=== PATIENT | male | born 1970 ===

== ENCOUNTER 2018-08-30 21:05 | Inpatient (IN) | payer OTHER ==
[2018-08-30 21:34] VITALS: BMI 39.6
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
[2018-08-31 00:42] LABS: ALB/GLOB RATIO 1.7 (1.1-1.8); ALBUMIN 4.6 g/dL (3.0-4.8); BLOOD UREA NITROGEN 15 mg/dL (7-21); CALCIUM 8.6 mg/dL (8.4-10.5); GFR NON-AFRICAN AMERICAN > 60
[2018-08-31 01:19] LABS: ALT/SGPT 50 U/L (7-56); AST/SGOT 90 U/L (17-59)
[2018-08-31 02:01] LABS: HEMOGLOBIN 13.4 g/dL (14.0-18.0); MEAN CELL VOLUME 75.6 fl (80.0-105.0); MEAN CORPUSCULAR HEMOGLOBIN 24.2 pg (25.0-35.0); MEAN CORPUSCULAR HGB CONC 32.1 g/dl (31.0-37.0); MEAN PLATELET VOLUME 8.3 fl (7.0-11.0); RBC 5.53 10^6/uL (3.5-6.1); RED CELL DISTRIBUTION WIDTH 17.6 % (11.5-14.5); WHITE BLOOD COUNT 8.3 10^3/uL (4.5-11.0)
[2018-08-31 07:10] LABS: BARBITURATES, UR NEGATIVE (NEGATIVE); BENZODIAZEPINES, UR NEGATIVE (NEGATIVE); OPIATES, UR NEGATIVE (NEGATIVE); PHENCYCLIDINE, UR NEGATIVE (NEGATIVE)
--- NOTE | 2018-08-31 07:17 | ED PDOC ---
Physical Exam Vital Signs Temp Pulse Resp BP Pulse Ox 08/31/18 06:03 97.9 F 106 H 18 139/89 98 08/31/18 01:06 72 18 124/75 98 08/30/18 21:47 97.9 F 89 19 126/77 97 Medical Decision Making ED Course and Treatment: 08/31/18 07:00 Case endorsed to me by Dr. Nichols. Pending sobriety and PES evaluation. 08/31/18 10:05 patient is withdrawing from alcohol, is visibily shaking and anxious, ciwa score approx 12 at this time. will admit for alcohol withdrawal. 08/31/18 10:[address] adame to the hospitalist service, patient to be admitted for alcohol withdrawal and suicidal ideation. will require a [facility] consult. - Lab Interpretations Lab Results: Total Bilirubin 0.7 mg/dL (0.2-1.3) 08/31/18 00:15 AST 90 U/L (17-59) H 08/31/18 00:15 ALT 50 U/L (7-56) 08/31/18 00:15 Alkaline Phosphatase 132 U/L (38-126) H 08/31/18 00:15 Total Protein 7.3 g/dL (5.8-8.3) 08/31/18 00:15 Albumin 4.6 g/dL (3.0-4.8) 08/31/18 00:15 Globulin 2.7 gm/dL 08/31/18 00:15 Albumin/Globulin Ratio 1.7 (1.1-1.8) 08/31/18 00:15 - RAD Interpretation Radiology Orders: 08/30/18 23:56 CHEST PORTABLE [RAD] Stat - EKG Interpretation EKG Interpretation (Text): 08/31/18 10:09 1009: sinus tach at 112 bpm, nml qrs, nml axis, no acute sttw abn Interpreted by ED Physician: Yes - Medication Orders Current Medication Orders: Discontinued Medications Lorazepam (Ativan) 1 mg IM ONCE ONE Stop: 08/31/18 00:16 Last Admin: 08/31/18 00:27 Dose: 1 mg IM Administration Charges Document 08/31/18 00:27 EB (Rec: 08/31/18 00:27 EB [id number]) Injection Site MAR Injection Site Right Deltoid Charges for Administration # of IM Administrations 1 - Scribe Statement The provider has reviewed the documentation as recorded by the Tevin Porras Provider Tevin Attestation: All medical record entries made by the Scribe were at my direction and personally dictated by me. I have reviewed the chart and agree that the record accurately reflects my personal performance of the history, physical exam, medical decision making, and the department course for this patient. I have also personally directed, reviewed, and agree with the discharge instructions and disposition. Disposition/Present on Arrival - Present on Arrival Any Indicators Present on Arrival: No History of DVT/PE: No History of Uncontrolled Diabetes: No Urinary Catheter: No History of Decub. Ulcer: No History Surgical Site Infection Following: None - Disposition Have Diagnosis and Disposition been Completed?: Yes Diagnosis: Alcohol intoxication, Depression, Suicidal ideation, Alcohol withdrawal Disposition: HOSPITALIZED Disposition Time: 10:06 Patient Plan: Admission Patient Problems: Current Active Problems Problem Status Onset Alcohol intoxication Acute Depression Acute Suicidal ideation Acute Alcohol withdrawal Acute Condition: GUARDED Referrals: PCP,NO [Primary Care Provider] - Follow up with primary Forms: [employer] (Swedish)
[2018-08-31] MEDS ORDERED: Multivitamin (MVI) 10 ML, Thiamine 100 MG, Folic Acid 1 MG in Sodium Chloride 0.9% 1,00... IV ONE (10:07)
--- NOTE | 2018-08-31 11:27 | RAD ---
Date of service: 08/31/2018 HISTORY: medical clearance COMPARISON: No prior. FINDINGS: LUNGS: Poor inspiration with low lung volumes crowded bronchovascular markings and minor bibasilar atelectasis PLEURA: No significant pleural effusion identified, no pneumothorax apparent. CARDIOVASCULAR: No aortic atherosclerotic calcification present. Normal cardiac size. No pulmonary vascular congestion. OSSEOUS STRUCTURES: No significant abnormalities. VISUALIZED UPPER ABDOMEN: Normal. OTHER FINDINGS: None. IMPRESSION: Poor inspiration with low lung volumes, crowded bronchovascular markings and minor bibasilar atelectasis.
[2018-08-31 11:54] LABS: INR 1.1; PARTIAL THROMBOPLASTIN TIME 29.9 Seconds (26.9-38.3); PROTHROMBIN TIME 12.4 SECONDS (9.4-12.5)
[2018-08-31] MEDS ORDERED: Pneumococcal 23-Valent Vaccine IM ONE (17:05)
[2018-08-31] MEDS ORDERED: Influenza Vaccine 60 mcg/0.5 mL SYR (4YR UP) IM ONE (17:05)
[2018-08-31] MEDS: Multivitamin (MVI) 10 ML, Thiamine 100 MG, Folic Acid 1 MG in Sodium Chloride 0.9% 1,00... IV ONE ×2 (17:44→21:31)
--- NOTE | 2018-08-31 21:25 | CARD ---
APPROVED REPORT Date of service: 08/31/2018 EKG Measurement Heart [id number] [place] [id number] [id number] <Conclusion> Sinus tachycardia Nonspecific ST abnormality Abnormal ECG
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
[2018-09-01] MEDS: Sodium Chloride 0.9% 1,000 ML IV SCH ×2 (06:21→18:10)
[2018-09-01 07:06] LABS: BASO # 0.01 K/mm3 (0.0-2.0); BASO % 0.2 % (0.0-3.0); EOS # 0.1 (0.0-0.7); EOS % 1.8 % (1.5-5.0); LYMPH # 1.3 (1.2-3.4); LYMPH % 23.1 % (22.0-35.0); MEAN CORPUSCULAR HEMOGLOBIN 23.6 pg (25.0-35.0); MEAN CORPUSCULAR HGB CONC 31.1 g/dl (31.0-37.0); MEAN PLATELET VOLUME 8.7 fl (7.0-11.0); MONO # 0.4 (0.1-0.6); MONO % 6.5 % (1.0-6.0); RBC 4.7 10^6/uL (3.5-6.1); RED CELL DISTRIBUTION WIDTH 17.3 % (11.5-14.5); WHITE BLOOD COUNT 5.7 10^3/uL (4.5-11.0)
[2018-09-01 07:38] LABS: HEMOGLOBIN 11.1 g/dL (14.0-18.0)
[2018-09-01 07:44] LABS: ALB/GLOB RATIO 1.7 (1.1-1.8); ALBUMIN 3.9 g/dL (3.0-4.8); ALT/SGPT 38 U/L (7-56); AST/SGOT 75 U/L (17-59); BLOOD UREA NITROGEN 12 mg/dL (7-21); CALCIUM 8.8 mg/dL (8.4-10.5); GFR NON-AFRICAN AMERICAN > 60
[2018-09-01] MEDS ORDERED: Magnesium Sulfate 2 gm/50 ml 2 GM/50 ML BAG IVPB ONE (07:46)
[2018-09-01] MEDS: Multivitamin Therapeutic Tab PO SCH (09:44)
[2018-09-01] MEDS ORDERED: Enoxaparin 40 mg Syringe SC SCH (10:00)
--- NOTE | 2018-09-01 11:12 | CARD ---
APPROVED REPORT Date of service: 09/01/2018 EKG Measurement Heart [id number] <Conclusion> Normal sinus rhythm Normal ECG
--- NOTE | 2018-09-01 13:10 | CP.PCM.PN ---
<Manjinder Alfaro - Last Filed: 09/01/18 13:06> Subjective - Date & Time of Evaluation Date of Evaluation: 09/01/18 Time of Evaluation: 09:10 - Subjective Subjective: aMnjinder Alfaro D.O. PGY-3, Internal Medicine Resident, Hospitalists Progress Note 47 year old male with a PMH of alcohol abuse, PTSD, anxiety, depression, who presented with symptoms of withdrawal. Patient was seen and examined at bedside with medical team. Still somewhat confused, states that he's been here for 4-5 days although he arrived yesterday. At times somewhat agitated. Objective - Vital Signs/Intake and Output Vital Signs (last 24 hours): Temp Pulse Resp BP Pulse Ox 99.1 F 107 H 20 161/104 H 96 09/01/18 12:00 09/01/18 12:00 09/01/18 12:00 09/01/18 12:00 09/01/18 06:00 Intake and Output: 09/01/18 09/01/18 06:59 18:59 Intake Total 0 Output Total 300 Balance -300 - Medications Medications: Current Medications Escitalopram Oxalate (Lexapro) 10 mg PO HS [facility] Folic Acid (Folic Acid) 1 mg PO DAILY [facility] Last Admin: 09/01/18 09:44 Dose: 1 mg Sodium Chloride (Sodium Chloride 0.9%) 1,000 mls @ 125 mls/hr IV .Q8H [facility] Last Admin: 09/01/18 06:21 Dose: 125 mls/hr Lorazepam (Ativan) 1 mg IVP Q2 PRN; Protocol PRN Reason: Seizure activity Last Admin: 09/01/18 13:00 Dose: 1 mg Lorazepam (Ativan) 2 mg IVP Q4H [facility]; Protocol Last Admin: 09/01/18 10:01 Dose: Not Given Multivitamins (Thera Tab) 1 tab PO 0800 [facility] Last Admin: 09/01/18 09:44 Dose: 1 tab Ondansetron HCl (Zofran Inj) 4 mg IVP Q4H PRN PRN Reason: Nausea/Vomiting Last Admin: 08/31/18 18:21 Dose: 4 mg Quetiapine Fumarate (Seroquel) 12.5 mg PO BID [facility]; Protocol Last Admin: 09/01/18 13:02 Dose: 12.5 mg Quetiapine Fumarate (Seroquel) 25 mg PO HS [facility]; Protocol Thiamine HCl (Vitamin B1 Tab) 100 mg PO DAILY [facility] Last Admin: 09/01/18 12:59 Dose: 100 mg - Labs Labs: 09/01/18 05:00 09/01/18 05:00 PT 12.4 SECONDS (9.4-12.5) 08/31/18 11:30 INR 1.10 08/31/18 11:30 APTT 29.9 Seconds (26.9-38.3) 08/31/18 11:30 - Constitutional Appears: Anxious, Confused, Well developed - Head Exam Head Exam: ATRAUMATIC, NORMAL INSPECTION, NORMOCEPHALIC - Eye Exam Eye Exam: EOMI, Normal appearance, PERRL - ENT Exam ENT Exam: Mucous Membranes Moist, Normal Exam - Neck Exam Neck exam: Positive for: Normal Inspection - Respiratory Exam Respiratory Exam: Clear to Auscultation Bilateral, NORMAL BREATHING PATTERN - Cardiovascular Exam Cardiovascular Exam: REGULAR RHYTHM - GI/Abdominal Exam GI & Abdominal Exam: Normal Bowel Sounds, Soft. absent: Tenderness - Extremities Exam Extremities exam: Positive for: normal inspection - Back Exam Back exam: NORMAL INSPECTION - Neurological Exam Neurological exam: Alert, CN II-XII Intact, Awake, Confused, Oriented to self and sometimes place only - Skin Skin Exam: Dry, Intact, Normal Color, Warm Assessment and Plan - Assessment and Plan (Free Text) Assessment: 47 year old male with a PMH of alcohol abuse, PTSD, anxiety, depression, who presented with symptoms of withdrawal. Plan: 1. Alcohol withdrawal CIWA still elevated Increasing ativan 2q6 to 2q4 with a 1q2 PRN Fall precautions Aspiration precautions Will attempt to try CLD and see if tolerates Cont MV, folate, and thiamine 2. Suicidal Ideation in the setting of known psychiatric illness (PTSD, anxiety and depression) Psych consulted, recs appreciated Started by psych on quetiapine and lexapro Cont 1:1 sitter 3. History of hepatic encephalopathy Will continue home lactulose at 20mg PO HS Monitor clinically 4. Tobacco Abuse Will advise cessation once withdrawals end/more oriented DVT/GI ppx: Protonix/SCDs Patient was seen and examined and case/management was discussed at length during and after rounds with attending physician. <Stephanie Bauer - Last Filed: 09/02/18 16:24> Objective - Vital Signs/Intake and Output Vital Signs (last 24 hours): Temp Pulse Resp BP Pulse Ox 98.2 F 71 19 122/80 95 09/02/18 00:00 09/02/18 14:30 09/02/18 14:30 09/02/18 14:00 09/02/18 14:30 Intake and Output: 09/02/18 09/02/18 06:59 18:59 Intake Total 2140 200 Output Total 2150 Balance -10 200 - Medications Medications: Current Medications Enoxaparin Sodium (Lovenox) 40 mg SC DAILY [facility]; Protocol Last Admin: 09/02/18 09:30 Dose: 40 mg Folic Acid (Folic Acid) 1 mg PO DAILY [facility] Last Admin: 09/02/18 10:38 Dose: 1 mg Sodium Chloride (Sodium Chloride 0.9%) 1,000 mls @ 125 mls/hr IV .Q8H [facility] Last Admin: 09/02/18 09:40 Dose: 125 mls/hr Dexmedetomidine HCl (Precedex 400mcg/100ml) 400 mcg in 100 mls @ 4.763 mls/hr IV .Q21H PRN; Protocol PRN Reason: Agitation Last Admin: 09/02/18 14:00 Dose: 1.2 mcg/kg/hr, 28.576 mls/hr Lactulose (Enulose) 20 gm PO HS [facility] Last Admin: 09/01/18 22:10 Dose: Not Given Lorazepam (Ativan) 1 mg IVP Q2 PRN; Protocol PRN Reason: Seizure activity Last Admin: 09/02/18 08:12 Dose: 1 mg Lorazepam (Ativan) 2 mg IVP Q4H [facility]; Protocol Last Admin: 09/02/18 13:41 Dose: 2 mg Multivitamins (Thera Tab) 1 tab PO 0800 [facility] Last Admin: 09/02/18 10:38 Dose: 1 tab Ondansetron HCl (Zofran Inj) 4 mg IVP Q4H PRN PRN Reason: Nausea/Vomiting Last Admin: 08/31/18 18:21 Dose: 4 mg Pantoprazole Sodium (Protonix Inj) 40 mg IVP DAILY [facility] Last Admin: 09/02/18 09:38 Dose: 40 mg Quetiapine Fumarate (Seroquel) 12.5 mg PO BID [facility]; Protocol Last Admin: 09/02/18 10:39 Dose: 12.5 mg Quetiapine Fumarate (Seroquel) 25 mg PO HS [facility]; Protocol Last Admin: 09/01/18 21:40 Dose: Not Given Thiamine HCl (Vitamin B1 Tab) 100 mg PO DAILY [facility] Last Admin: 09/02/18 10:30 Dose: 100 mg - Labs Labs: 09/02/18 05:30 09/02/18 05:30 PT 12.4 SECONDS (9.4-12.5) 08/31/18 11:30 INR 1.10 08/31/18 11:30 APTT 29.9 Seconds (26.9-38.3) 08/31/18 11:30 Attending/Attestation - Attestation I have personally seen and examined this patient.: Yes I have fully participated in the care of the patient.: Yes I have reviewed all pertinent clinical information, including history, physical exam and plan: Yes Notes (Text): Patient seen and examined by me with resident at 8:50 AM on 09/01/18. Case including HPI, physical exam, and assessment and plan discussed with resident. Agree with above with following additions/corrections. Patient is a 47-year-old male with past medical history significant for alcohol abuse, alcohol withdrawal, liver cirrhosis, bipolar disease, and tobacco abuse that presents to the emergency room with alcohol intoxication and withdrawal. Patient states he is feeling ok. Patient is asking how long he has been in the h ospital. Patient states he understands we are trying to help but I need to go home today. Importance of staying discussed with patient. Patient understands. Patient denies any chest pain or shortness of breath. No headaches or dizziness. No fevers or chills. No dysuria. No diarrhea. No nausea, vomiting, or abdominal pain. Physical exam: General: Awake and alert lying in bed in no acute distress HEENT: Normocephalic, atraumatic. Extraocular muscles intact, pupils equal and reactive, no scleral icterus. Oropharynx is pink and moist. No pharyngeal erythema or exudate apreciated. Neck is supple. Cardiovascular: Regular rhythm. Normal S1 and S2. No murmurs, rubs, or gallops appreciated Pulmonary: Normal respiratory effort.No rhonchi, rales, or wheezing appreciated. Gastrointestinal: Soft, nondistended. Nontender. Positive bowel sounds all 4 quadrants. No guarding. Musculoskeletal: Moves all extremities. No calf tenderness. No edema. Central nervous system: AAOx3,CN 2-12 grossly intact. Positive tremors upper extremities. Dermatologic: Skin warm and dry. Assessment and plan: Patient is a 47-year-old male with past medical history significant for alcohol abuse, alcohol withdrawal, liver cirrhosis, bipolar disorder, and tobacco abuse that presents to the emergency room with alcohol intoxication and withdrawal. 1. Alcohol withdrawal and intoxication. Alcohol level 339 on admission. Patient at high risk for DTs. Scheduled Ativan dose increased. Continue Ativan prn. Continue CIWA protocol. Continue thiamine, folic acid, and multivitamin. Monitor closely for withdrawal symptoms and DTs 2. Alcohol abuse. Patient counseled at length on cessation. Patient with a history of liver cirrhosis and encephalopathy. Per patient, he takes lactulose at home for history of high ammonia levels. Ammonia level within normal limits. 3. Suicidal ideations. Psych following, recommendations appreciated. Continue Seroquel. Continue 1:1 4. Tobacco abuse. Patient counseled at length on cessation 5. Bioplar disorder. Psychiatrist following, recommendations appreciated. Continue Seroquel. 6. DVT prophylaxis. SCDS 7. Patient is a full code Case discussed in detail with patient regarding current diagnosis and treatment plan. All questions answered.
[2018-09-01] MEDS ORDERED: DiphenhydrAMINE 50 mg/ml Inj IVP STA (13:52)
[2018-09-01] MEDS: Dexmedetomidine 400mcg/100mL 400 MCG/100 ML BOTTLE IV PRN ×2 (15:00→22:44)
--- NOTE | 2018-09-01 15:22 | PCM.RRT ---
<Win Villasenor - Last Filed: 09/01/18 15:18> MIRROR SPECIALIST Nurse Assessment - Situation Date: 09/01/18 Time MIRROR SPECIALIST was called: 14:43 MIRROR SPECIALIST Responder Arrival Time: 14:45 MIRROR SPECIALIST Location:: [address] [place] [address] MIRROR SPECIALIST Reason for Call: Respiratory Distress, Not Responding to Urgent Treatment, Change in Mental Status, Looks Sicker MIRROR SPECIALIST Called By: RN - IV IV Inserted during MIRROR SPECIALIST?: No IV Fluids Initiated During MIRROR SPECIALIST?: 0.9NS @ 100 ml/hr - Respiratory Oxygen Delivery Method: Room Air Received Nebulizer Treatments:: No Was the Patient Ventilated with Bag/Mask 100% O2?: No Secretions Suctioned?: No Was the Patient Intubated?: No Was the Patient Placed on a Ventilator?: No - Medication Medications Administered During MIRROR SPECIALIST: Haldol 5mg IM, - Diagnostic Test Ordered EKG: No Chest X-Ray: No CT Scan: No CPR started during MIRROR SPECIALIST?: No - Vital Signs Vital Sign: Rapid Response Vital Sign Pulse Rate 144 Respiratory Rate 64 - Time MIRROR SPECIALIST Ended Time MIRROR SPECIALIST Ended: 15:09 - Vital Signs at end of MIRROR SPECIALIST Vital Signs at end of MIRROR SPECIALIST: Rapid Response End Vital Sign Pulse Rate 145 Respiratory Rate 44 - Recommendations Notifications: Attending Physician I.Reason for MIRROR SPECIALIST - A) Acute Change in Patient: (Select all that apply): Delirium Tremens (DT's) Subjective: MIRROR SPECIALIST called for worsening patient agitation and non-responsiveness to ativan. On initial exam, patient appears able to protect airway and is moving all limbs spontaneously. He is agitated, combative with staff, and is starting to bruise his arms and legs from kicking. - Neurological Status (Select all that apply): Responsive, Disoriented, Aggressive - Respiratory Oxygen Delivery Method: Room Air - Constitutional Appears: Unkempt, Combative, Agitated - Head Head Exam: NORMOCEPHALIC - Eyes Eye Exam: EOMI - Respiratory Exam Respiratory Exam: Clear to Ausculation Bilateral. absent: Rales, Rhonchi, Wheezes - Cardiovascular Exam Cardiovascular Exam: Tachycardia, +S1, +S2. absent: Gallop, Rubs, Murmur - Neurological Exam Additional exam: Non-cooperative with exam, combative, agitated, pulling at tubes Plan - Assessment of Findings&Treatment Plan MIRROR SPECIALIST called for concern of worsening non-responsiveness to IV ativan. MIRROR SPECIALIST team arrived immediately thereafter with attending physician. Patient has history of alcohol abuse with positive alcohol level on admission. Suspect patient is going through early withdrawal vs other acutely psychotic state. Nursing staff and security were present at bedside to restrain and attempt to calm patient. Haldol 5 mg IVP followed by an additional ativan 4 mg IVP given. ICU consulted, Dr. Ulloa saw and examined patient. Plan on transfer to ICU for precedex drip and/or additional sedation as needed. Further management per ICU team. Case and plan were reviewed and discussed in detail with patient's primary attending, Dr. Wilmer Villasenor, IM Resident PGY-1 <Stephanie Bauer - Last Filed: 09/02/18 16:31> MIRROR SPECIALIST Nurse Assessment - Vital Signs Vital Sign: Rapid Response Vital Sign Pulse Rate 144 Respiratory Rate 64 - Vital Signs at end of MIRROR SPECIALIST Vital Signs at end of MIRROR SPECIALIST: Rapid Response End Vital Sign Pulse Rate 145 Respiratory Rate 44 Attending/Attestation - Attestation I have personally seen and examined this patient.: Yes I have fully participated in the care of the patient.: Yes I have reviewed all pertinent clinical information, including history, physical exam and plan: Yes Notes (Text): Patient seen and examined by me at 14:43 on 09/01/18. Agree with above with following additions/corrections. Rapid response called for patient becoming more confused and agitation. Patient placed in 4 point restraints. Patient tachycardic. Attempting to get up and out of bed. Pulling on restraints with full strength. Security at bedside. Patient hallucinating and very confused. Haldol and Ativan given. ICU consulted. Patient symptoms improved with Haldol and Ativan. Patient transferred to ICU for Precedex drip and Delirium Tremens from Alcohol withdrawal. Physical exam: General: Awake and alert, diaphoretic, agitated in acute distress, hallucinating. Cardiovascular: Tachycardic S1 and S2. MOLECULAR BIOLOGY SCIENTIST: Altered. Hallucinating. Confused.
[2018-09-01] MEDS ORDERED: DiphenhydrAMINE 50 mg/ml Inj IVP ONE (15:32)
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
[2018-09-01 21:27] LABS: PH,URINE 7.5 (4.7-8.0); URINE BILIRUBIN NEGATIVE (NEGATIVE); URINE BLOOD MODERATE (NEGATIVE); URINE GLUCOSE (UA) NEGATIVE (NEGATIVE); URINE LEUKOCYTE ESTERASE NEGATIVE Leu/uL (NEGATIVE); URINE PROTEIN NEGATIVE mg/dL (<30 mg/dL)
[2018-09-01 21:28] LABS: URINE APPEARANCE CLEAR (CLEAR); URINE COLOR YELLOW (YELLOW)
[2018-09-01 21:43] LABS: URINE RBC 0 - 2 /hpf (0-2)
[2018-09-01 21:47] LABS: BARBITURATES, UR NEGATIVE (NEGATIVE); BENZODIAZEPINES, UR NEGATIVE (NEGATIVE); OPIATES, UR NEGATIVE (NEGATIVE); PHENCYCLIDINE, UR NEGATIVE (NEGATIVE)
--- NOTE | 2018-09-01 22:08 | CON ---
DATE: 09/01/2018 HISTORY OF PRESENT ILLNESS: The patient is a 47-year-old male with a history of profound alcoholism, dating back 20 years per the patient. The patient was recently admitted to the medical floor as he is intoxicated and indicated that he had convulsions. Psychiatry was called to confirm as the patient had stated that he had suicidal thoughts while he was in yard. I met with the patient at bedside, I also reviewed recent medications which indicated that the patient has difficult as he need to be discharged. He was medically disoriented. There were no clear reasons for discharge or he has inconsistent reasons and require one-to-one because he was so unpredictable. Apparently, the patient was talking to people who were not there and actively hallucinating. When I meet with the patient at bedside, he is reluctant to speak with me. He said he would only speak with me so that he can be discharged. The patient is aware that he is at [facility], does know the month, he indicates that this is 2018. He is reluctant to deny suicidal thoughts, I have to ask him multiple times and then he answers neutrally, was I guess not. The patient has trouble with comprehension, will not answer some questions relevantly. He is inconsistent, his focus is inconsistent. Indicates that he is in a psychiatric treatment with in [place] and another psychiatrist in [place]. Presently, he is a poor historian right now. Thus, reported he takes Lamictal and Lexapro. Denies psychiatric admissions. Admits to drinking alcohol and he is very irritable, he feels like he is treated for alcohol withdrawal and the detox. He also reports that in the past go to the facility in [place]; however, he is very vague about the name of the facility, taken 440 of 287 and he gives me different names of the same facility. Right now, his insight and judgment considered to be poor. He does not have capacity to sign out against AMA due to likely alcohol withdrawal, delirium. Labs and vitals are reviewed. MEDICATIONS: Psychiatric medications include Ativan 1 mg IV every 2 hours p.r.n. and 2 mg every 4 hours scheduled. PSYCHIATRIC HISTORY: The patient reports that he sees at [place] and another psychiatrist at [place], and he has been prescribed Lamictal 25 mg and Lexapro 20 mg. Denies prior psychiatric illness. SOCIAL HISTORY: The patient reports that he is not or single, he just quotes "I do my thing." The patient reports he has 4 kids. 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 Lives in an apartment. The patient can be vague by his social history, unclear because he is guarded, irritable, or disoriented. The patient reports 20-year history of alcohol dependency. IMPRESSION: Alcohol withdrawal, delirium, alcohol use disorder severe, likely substance abuse mood disorder, substance abuse psychotic disorder, rule out major depressive disorder, and rule out bipolar spectrum disorder. RECOMMENDATIONS: 1. We will continue Ativan 2 mg IV every 4 hours scheduled and please do not forget to take this medication since too many benzos can cause benzos delirium. 2. I will restart Lexapro 10 mg as well as Seroquel 12.5 b.i.d. and 25 at bedtime to help the patient with hallucinations and impulse control as well as mood control. 3. Psychiatry will continue to follow up. Next follow up will be on 09/02/2018. 4. Lastly, the patient is not psychiatrically cleared for discharge as he is currently considered being danger to himself or others due to his disorientation. Shyam West MD
[2018-09-02] MEDS: Sodium Chloride 0.9% 1,000 ML IV SCH ×4 (01:42→17:22)
[2018-09-02] MEDS: Dexmedetomidine 400mcg/100mL 400 MCG/100 ML BOTTLE IV PRN ×6 (02:22→21:01)
[2018-09-02 06:22] LABS: BASO # 0.01 K/mm3 (0.0-2.0); BASO % 0.1 % (0.0-3.0); EOS # 0.2 (0.0-0.7); EOS % 2.2 % (1.5-5.0); HEMOGLOBIN 11.4 g/dL (14.0-18.0); LYMPH % 14.8 % (22.0-35.0); MEAN CELL VOLUME 76.2 fl (80.0-105.0); MEAN CORPUSCULAR HEMOGLOBIN 24.2 pg (25.0-35.0); MEAN CORPUSCULAR HGB CONC 31.8 g/dl (31.0-37.0); MEAN PLATELET VOLUME 8.3 fl (7.0-11.0); MONO # 0.4 (0.1-0.6); MONO % 5.8 % (1.0-6.0); RBC 4.71 10^6/uL (3.5-6.1); RED CELL DISTRIBUTION WIDTH 17.4 % (11.5-14.5); WHITE BLOOD COUNT 6.9 10^3/uL (4.5-11.0)
[2018-09-02 07:19] LABS: ALB/GLOB RATIO 1.5 (1.1-1.8); ALBUMIN 3.6 g/dL (3.0-4.8); ALT/SGPT 43 U/L (7-56); AST/SGOT 148 U/L (17-59); BLOOD UREA NITROGEN 7 mg/dL (7-21); CALCIUM 8.6 mg/dL (8.4-10.5); GFR NON-AFRICAN AMERICAN > 60
[2018-09-02] MEDS: Enoxaparin 40 mg Syringe SC SCH (09:30)
[2018-09-02] MEDS: Multivitamin Therapeutic Tab PO SCH (10:38)
--- NOTE | 2018-09-02 12:31 | CP.CCUPN ---
<Carlos Desai - Last Filed: 09/02/18 12:23> CCU Subjective - Physician Review Subjective (Free Text): 09/02/18 12:23 Carlos Desai PGY1 Critical Care Progress Note Patient seen and examined at bedside this morning. Precedex drip titrated down overnight, however patient became agitated and combative and precedex was increased back up. CIWA score 15. Upon examination, patient is lethargic and sedated; 12 point ROS unobtainable. CCU Objective - Vital Signs / Intake & Output Vital Signs (Last 4 hours): Vital Signs Pulse Resp BP Pulse Ox 09/02/18 11:30 74 18 99 09/02/18 11:20 74 19 96 09/02/18 11:10 75 20 96 09/02/18 11:00 86 25 H 119/68 92 L 09/02/18 10:55 71 61 H 09/02/18 10:50 96 H 97 09/02/18 10:40 73 22 100 09/02/18 10:30 74 21 99 09/02/18 10:20 69 21 100 09/02/18 10:10 71 23 100 09/02/18 10:00 71 21 154/104 H 100 09/02/18 09:50 85 38 H 99 09/02/18 09:40 71 21 99 09/02/18 09:30 70 21 99 09/02/18 09:20 68 22 99 09/02/18 09:10 71 24 97 09/02/18 09:00 68 21 158/92 H 100 09/02/18 08:50 67 20 100 09/02/18 08:40 68 21 100 09/02/18 08:30 68 21 100 Intake and Output (Last 8hrs): Intake & Output 09/01/18 09/02/18 09/02/18 22:59 06:59 14:59 Intake Total 1710 0 100 Output Total 100 2150 Balance 1610 -110 100 Weight 210 lb 6.4 oz Intake: IV 1710 2040 100 Left Hand 1250 Left Wrist 1840 Right Antecubital 360 Oral 0 0 Output: Urine 100 2150 Urethral (Haddad) 2150 Urine, Voided 100 Other: # Bowel Movements 0 - Physical Exam Head: Positive for: Atraumatic, Normocephalic Pupils: Positive for: PERRL Extroacular Muscles: Positive for: EOMI Conjunctiva: Positive for: Normal Mouth: Positive for: Moist Mucous Membranes Neck: Positive for: Normal Range of Motion Respiratory/Chest: Positive for: Clear to Auscultation, Good Air Exchange. Negative for: Respiratory Distress, Accessory Muscle Use Cardiovascular: Positive for: Regular Rate and Rhythm, Normal S1, S2. Negative for: Murmurs Abdomen: Negative for: Tenderness, Distention, Peritoneal Signs Back: Positive for: Normal Inspection Upper Extremity: Positive for: Normal Inspection. Negative for: Cyanosis, Edema Lower Extremity: Positive for: Normal Inspection. Negative for: Edema Neurological: Positive for: GCS=15, Speech Normal, Other (sedated ) Skin: Positive for: Warm, Dry, Normal Color. Negative for: Rashes Psychiatric: Positive for: Intoxicated, Other (sedated ) - Medications Active Medications: Active Medications Generic Name Dose Route Start Last Admin Trade Name Freq PRN Reason Stop Dose Admin Enoxaparin Sodium 40 mg 09/02/18 10:00 Lovenox SC DAILY DARLYN Protocol Folic Acid 1 mg 09/01/18 10:00 09/02/18 10:38 Folic Acid PO 1 mg DAILY DARLYN Administration Sodium Chloride 1,000 mls @ 125 mls/hr 09/01/18 00:15 09/02/18 09:40 Sodium Chloride 0.9% IV 125 mls/hr .Q8H DARLYN Administration Dexmedetomidine HCl 400 mcg in 100 mls @ 4.763 mls/hr 09/01/18 14:58 09/02/18 09:36 Precedex 400mcg/100ml IV 1.2 mcg/kg/hr .Q21H PRN 28.576 mls/hr Agitation Administration Protocol 0.2 MCG/KG/HR Lactulose 20 gm 09/01/18 22:00 09/01/18 22:10 Enulose PO Not Given HS DARLYN Lorazepam 1 mg 08/31/18 17:59 09/02/18 08:12 Ativan IVP 1 mg Q2 PRN Administration Seizure activity Protocol Lorazepam 2 mg 09/01/18 09:00 09/02/18 09:50 Ativan IVP 2 mg Q4H DARLYN Administration Protocol Multivitamins 1 tab 09/01/18 08:00 09/02/18 10:38 Thera Tab PO 1 tab 0800 DARLYN Administration Ondansetron HCl 4 mg 08/31/18 18:10 08/31/18 18:21 Zofran Inj IVP 4 mg Q4H PRN Administration Nausea/Vomiting Pantoprazole Sodium 40 mg 09/02/18 10:00 09/02/18 09:38 Protonix Inj IVP 40 mg DAILY DARLYN Administration Quetiapine Fumarate 12.5 mg 09/01/18 10:45 09/02/18 10:39 Seroquel PO 12.5 mg BID DARLYN Administration Protocol Quetiapine Fumarate 25 mg 09/01/18 22:00 09/01/18 21:40 Seroquel PO Not Given HS DARLYN Protocol Thiamine HCl 100 mg 09/01/18 10:00 09/01/18 12:59 Vitamin B1 Tab PO 100 mg DAILY ADRLYN Administration - Patient Studies Lab Studies: Lab Studies 09/02/18 09/02/18 09/01/18 Range/Units 05:30 05:30 21:21 WBC 6.9 D (4.5-11.0) 10^3/uL RBC 4.71 (3.5-6.1) 10^6/uL Hgb 11.4 L (14.0-18.0) g/dL Hct 35.9 L (42.0-52.0) % MCV 76.2 L (80.0-105.0) fl MCH 24.2 L (25.0-35.0) pg MCHC 31.8 (31.0-37.0) g/dl RDW 17.4 H (11.5-14.5) % Plt Count 131 (120.0-450.0) 10^3/uL MPV 8.3 (7.0-11.0) fl Neut % (Auto) 77.1 H (50.0-68.0) % Lymph % (Auto) 14.8 L (22.0-35.0) % Centre % (Auto) 5.8 (1.0-6.0) % Eos % (Auto) 2.2 (1.5-5.0) % Baso % (Auto) 0.1 (0.0-3.0) % Lymph # (Auto) 1.0 L (1.2-3.4) Centre # (Auto) 0.4 (0.1-0.6) Eos # (Auto) 0.2 (0.0-0.7) Baso # (Auto) 0.01 (0.0-2.0) K/mm3 Absolute Neuts (auto) 5.31 (1.4-6.5) Sodium 138 (132-148) mmol/L Potassium 3.7 (3.6-5.0) mmol/L Chloride 107 (98-107) mmol/L Carbon Dioxide 25 (21-33) mmol/L Anion Gap 10 (10-20) BUN 7 (7-21) mg/dL Creatinine 0.7 L (0.8-1.5) mg/dl Est GFR ( Amer) > 60 Est GFR (Non-Af Amer) > 60 Random Glucose 102 (70-110) mg/dL Calcium 8.6 (8.4-10.5) mg/dL Phosphorus 3.3 (2.5-4.5) mg/dL Magnesium 1.8 (1.7-2.2) mg/dL Total Bilirubin 1.5 H (0.2-1.3) mg/dL AST 148 H D (17-59) U/L ALT 43 (7-56) U/L Alkaline Phosphatase 98 (38-126) U/L Ammonia (9-33) umol/L Total Protein 6.0 (5.8-8.3) g/dL Albumin 3.6 (3.0-4.8) g/dL Globulin 2.4 gm/dL Albumin/Globulin Ratio 1.5 (1.1-1.8) Urine Color Yellow (YELLOW) Urine Appearance Clear (CLEAR) Urine pH 7.5 (4.7-8.0) Ur Specific [place] 1.020 (1.005-1.035) Urine Protein Negative (<30 mg/dL) mg/dL Urine Glucose (UA) Negative (NEGATIVE) mg/dL Urine Ketones 40 H (NEGATIVE) mg/dL Urine Blood Moderate H (NEGATIVE) Urine Nitrate Negative (NEGATIVE) Urine Bilirubin Negative (NEGATIVE) Urine Urobilinogen 4.0 H (<1 E.U./dL) E.U./dL Ur Leukocyte Esterase Negative (NEGATIVE) Diane/uL Urine RBC 0 - 2 (0-2) /hpf Urine WBC None (0-6) /hpf Ur Epithelial Cells None (0-5) /hpf Urine Opiates Screen (NEGATIVE) Urine Methadone Screen (NEGATIVE) Ur Barbiturates Screen (NEGATIVE) Ur Phencyclidine Scrn (NEGATIVE) Ur Amphetamines Screen (NEGATIVE) U Benzodiazepines Scrn (NEGATIVE) U Oth Cocaine Metabols (NEGATIVE) U Cannabinoids Screen (NEGATIVE) 09/01/18 09/01/18 Range/Units 21:21 12:43 WBC (4.5-11.0) 10^3/uL RBC (3.5-6.1) 10^6/uL Hgb (14.0-18.0) g/dL Hct (42.0-52.0) % MCV (80.0-105.0) fl MCH (25.0-35.0) pg MCHC (31.0-37.0) g/dl RDW (11.5-14.5) % Plt Count (120.0-450.0) 10^3/uL MPV (7.0-11.0) fl Neut % (Auto) (50.0-68.0) % Lymph % (Auto) (22.0-35.0) % Centre % (Auto) (1.0-6.0) % Eos % (Auto) (1.5-5.0) % Baso % (Auto) (0.0-3.0) % Lymph # (Auto) (1.2-3.4) Centre # (Auto) (0.1-0.6) Eos # (Auto) (0.0-0.7) Baso # (Auto) (0.0-2.0) K/mm3 Absolute Neuts (auto) (1.4-6.5) Sodium (132-148) mmol/L Potassium (3.6-5.0) mmol/L Chloride (98-107) mmol/L Carbon Dioxide (21-33) mmol/L Anion Gap (10-20) BUN (7-21) mg/dL Creatinine (0.8-1.5) mg/dl Est GFR ( Amer) Est GFR (Non-Af Amer) Random Glucose (70-110) mg/dL Calcium (8.4-10.5) mg/dL Phosphorus (2.5-4.5) mg/dL Magnesium (1.7-2.2) mg/dL Total Bilirubin (0.2-1.3) mg/dL AST (17-59) U/L ALT (7-56) U/L Alkaline Phosphatase (38-126) U/L Ammonia 12 (9-33) umol/L Total Protein (5.8-8.3) g/dL Albumin (3.0-4.8) g/dL Globulin gm/dL Albumin/Globulin Ratio (1.1-1.8) Urine Color (YELLOW) Urine Appearance (CLEAR) Urine pH (4.7-8.0) Ur Specific [place] (1.005-1.035) Urine Protein (<30 mg/dL) mg/dL Urine Glucose (UA) (NEGATIVE) mg/dL Urine Ketones (NEGATIVE) mg/dL Urine Blood (NEGATIVE) Urine Nitrate (NEGATIVE) Urine Bilirubin (NEGATIVE) Urine Urobilinogen (<1 E.U./dL) E.U./dL Ur Leukocyte Esterase (NEGATIVE) Diane/uL Urine RBC (0-2) /hpf Urine WBC (0-6) /hpf Ur Epithelial Cells (0-5) /hpf Urine Opiates Screen Negative (NEGATIVE) Urine Methadone Screen Negative (NEGATIVE) Ur Barbiturates Screen Negative (NEGATIVE) Ur Phencyclidine Scrn Negative (NEGATIVE) Ur Amphetamines Screen Negative (NEGATIVE) U Benzodiazepines Scrn Negative (NEGATIVE) U Oth Cocaine Metabols Negative (NEGATIVE) U Cannabinoids Screen Negative (NEGATIVE) Laboratory Results - last 24 hr 09/01/18 09/01/18 09/01/18 12:43 21:21 21:21 WBC RBC Hgb Hct MCV MCH MCHC RDW Plt Count MPV Neut % (Auto) Lymph % (Auto) Centre % (Auto) Eos % (Auto) Baso % (Auto) Lymph # (Auto) Centre # (Auto) Eos # (Auto) Baso # (Auto) Absolute Neuts (auto) Sodium Potassium Chloride Carbon Dioxide Anion Gap BUN Creatinine Est GFR ( Amer) Est GFR (Non-Af Amer) Random Glucose Calcium Phosphorus Magnesium Total Bilirubin AST ALT Alkaline Phosphatase Ammonia 12 Total Protein Albumin Globulin Albumin/Globulin Ratio Urine Color Yellow Urine Appearance Clear Urine pH 7.5 Ur Specific [place] 1.020 Urine Protein Negative Urine Glucose (UA) Negative Urine Ketones 40 H Urine Blood Moderate H Urine Nitrate Negative Urine Bilirubin Negative Urine Urobilinogen 4.0 H Ur Leukocyte Esterase Negative Urine RBC 0 - 2 Urine WBC None Ur Epithelial Cells None Urine Opiates Screen Negative Urine Methadone Screen Negative Ur Barbiturates Screen Negative Ur Phencyclidine Scrn Negative Ur Amphetamines Screen Negative U Benzodiazepines Scrn Negative U Oth Cocaine Metabols Negative U Cannabinoids Screen Negative 09/02/18 09/02/18 05:30 05:30 WBC 6.9 D RBC 4.71 Hgb 11.4 L Hct 35.9 L MCV 76.2 L MCH 24.2 L MCHC 31.8 RDW 17.4 H Plt Count 131 MPV 8.3 Neut % (Auto) 77.1 H Lymph % (Auto) 14.8 L Centre % (Auto) 5.8 Eos % (Auto) 2.2 Baso % (Auto) 0.1 Lymph # (Auto) 1.0 L Centre # (Auto) 0.4 Eos # (Auto) 0.2 Baso # (Auto) 0.01 Absolute Neuts (auto) 5.31 Sodium 138 Potassium 3.7 Chloride 107 Carbon Dioxide 25 Anion Gap 10 BUN 7 Creatinine 0.7 L Est GFR ( Amer) > 60 Est GFR (Non-Af Amer) > 60 Random Glucose 102 Calcium 8.6 Phosphorus 3.3 Magnesium 1.8 Total Bilirubin 1.5 H AST 148 H D ALT 43 Alkaline Phosphatase 98 Ammonia Total Protein 6.0 Albumin 3.6 Globulin 2.4 Albumin/Globulin Ratio 1.5 Urine Color Urine Appearance Urine pH Ur Specific [place] Urine Protein Urine Glucose (UA) Urine Ketones Urine Blood Urine Nitrate Urine Bilirubin Urine Urobilinogen Ur Leukocyte Esterase Urine RBC Urine WBC Ur Epithelial Cells Urine Opiates Screen Urine Methadone Screen Ur Barbiturates Screen Ur Phencyclidine Scrn Ur Amphetamines Screen U Benzodiazepines Scrn U Oth Cocaine Metabols U Cannabinoids Screen Critical Care Progress Note - Nutrition Nutrition: Nutrition Category Date Time Status NPO Diet [DIET] Diets 09/01/18 Lunch Ordered Assessment/Plan - Assessment and Plan (Free Text) Assessment: 47 year old male with past medical history of alcohol abuse, PTSD, anxiety, depression, cirrhosis is currently diagnosed with severe agitation 2/2 to delirium tremens from alcohol withdrawal vs. acute psychosis. Patient continues to have elevated CIWA score requiring precedex drip for agitation and combative behavior. Plan: Neuro: Agitation 2/2 to delirium tremens vs. psychosis -CIWA 15 overnight -Alcohol: 339 on presentation -Patient requiring precedex drip at 1.2 mg/min, unable to titrate down due to agitation and combative behavior, will attempt again as tolerated -Patient currently on ativan 2 mg IV Q4, ativan 1 mg Q2 PRN for alcohol withdrawal -continue folic acid, multivitamin, and thiamine for alcohol withdrawal. -continue seroquel 12.5 BID, 25 mg HS for psychosis -Aspiration and seizure precautions. -Alcohol withdrawal assessments Q4 -1:1 sitter, soft restraints on -Monitor neuro status. Cardio: -no tachycardia overnight noted -previously tachycardic on 09/01/18 due to alcohol withdrawal. -Maintain MAP>65. -monitor hemodynamics Pulm: -Maintain O2 saturation>90%. -O2 NC PRN -Consider intubation if GCS<8 -Head of bed to 30 degrees -Maintain oral hygiene GI: Cirrhosis -Ammonia: 12 -Continue lactulose 20 mg daily Diet -NPO except for medications -protonix for ppx /Nephro: -BUN/Cr stable -UDS negative -Good urine output, 2.2L overnight -Replete electrolytes as needed. -Maintain euvolemia. Endo: -Maintain euglycemia. Heme/Onc: -Hg is 11.4 from 13.4, will monitor -No signs of HD compromise. -Continue monitoring H/H -DVT ppx with lovenox ID: -Afebrile, no leukocytosis -urine culture pending Patient seen and examined with Dr. Dill <Jordan Dill - Last Filed: 09/02/18 15:01> CCU Objective - Vital Signs / Intake & Output Vital Signs (Last 4 hours): Vital Signs Pulse Resp BP Pulse Ox 09/02/18 14:30 71 19 95 09/02/18 14:05 81 29 H 09/02/18 14:00 70 18 122/80 96 09/02/18 13:30 77 24 94 L 09/02/18 13:00 117 H 151/100 H 86 L 09/02/18 12:30 72 21 98 09/02/18 12:00 71 18 139/89 99 09/02/18 11:30 74 18 99 09/02/18 11:20 74 19 96 09/02/18 11:10 75 20 96 Intake and Output (Last 8hrs): Intake & Output 09/02/18 09/02/18 09/02/18 06:59 14:59 22:59 Intake Total 2039 200 Output Total 2150 Balance -110 200 Weight 210 lb 6.4 oz Intake: IV 2039 200 Left Wrist 1840 Oral 0 Output: Urine 2150 Urethral (Haddad) 2150 Other: # Bowel Movements 0 - Medications Active Medications: Active Medications Generic Name Dose Route Start Last Admin Trade Name Freq PRN Reason Stop Dose Admin Enoxaparin Sodium 40 mg 09/02/18 10:00 09/02/18 09:30 Lovenox SC 40 mg DAILY DARLYN Administration Protocol Folic Acid 1 mg 09/01/18 10:00 09/02/18 10:38 Folic Acid PO 1 mg DAILY DARLYN Administration Sodium Chloride 1,000 mls @ 125 mls/hr 09/01/18 00:15 09/02/18 09:40 Sodium Chloride 0.9% IV 125 mls/hr .Q8H DARLYN Administration Dexmedetomidine HCl 400 mcg in 100 mls @ 4.763 mls/hr 09/01/18 14:58 09/02/18 14:00 Precedex 400mcg/100ml IV 1.2 mcg/kg/hr .Q21H PRN 28.576 mls/hr Agitation Administration Protocol 0.2 MCG/KG/HR Lactulose 20 gm 09/01/18 22:00 09/01/18 22:10 Enulose PO Not Given HS DARLYN Lorazepam 1 mg 08/31/18 17:59 09/02/18 08:12 Ativan IVP 1 mg Q2 PRN Administration Seizure activity Protocol Lorazepam 2 mg 09/01/18 09:00 09/02/18 13:41 Ativan IVP 2 mg Q4H DARLYN Administration Protocol Multivitamins 1 tab 09/01/18 08:00 09/02/18 10:38 Thera Tab PO 1 tab 0800 DARLYN Administration Ondansetron HCl 4 mg 08/31/18 18:10 08/31/18 18:21 Zofran Inj IVP 4 mg Q4H PRN Administration Nausea/Vomiting Pantoprazole Sodium 40 mg 09/02/18 10:00 09/02/18 09:38 Protonix Inj IVP 40 mg DAILY DARLYN Administration Quetiapine Fumarate 12.5 mg 09/01/18 10:45 09/02/18 10:39 Seroquel PO 12.5 mg BID DARLYN Administration Protocol Quetiapine Fumarate 25 mg 09/01/18 22:00 09/01/18 21:40 Seroquel PO Not Given HS DARLYN Protocol Thiamine HCl 100 mg 09/01/18 10:00 09/02/18 10:30 Vitamin B1 Tab PO 100 mg DAILY DARLYN Administration - Patient Studies Lab Studies: Lab Studies 09/02/18 09/02/18 09/01/18 Range/Units 05:30 05:30 21:21 WBC 6.9 D (4.5-11.0) 10^3/uL RBC 4.71 (3.5-6.1) 10^6/uL Hgb 11.4 L (14.0-18.0) g/dL Hct 35.9 L (42.0-52.0) % MCV 76.2 L (80.0-105.0) fl MCH 24.2 L (25.0-35.0) pg MCHC 31.8 (31.0-37.0) g/dl RDW 17.4 H (11.5-14.5) % Plt Count 131 (120.0-450.0) 10^3/uL MPV 8.3 (7.0-11.0) fl Neut % (Auto) 77.1 H (50.0-68.0) % Lymph % (Auto) 14.8 L (22.0-35.0) % Centre % (Auto) 5.8 (1.0-6.0) % Eos % (Auto) 2.2 (1.5-5.0) % Baso % (Auto) 0.1 (0.0-3.0) % Lymph # (Auto) 1.0 L (1.2-3.4) Centre # (Auto) 0.4 (0.1-0.6) Eos # (Auto) 0.2 (0.0-0.7) Baso # (Auto) 0.01 (0.0-2.0) K/mm3 Absolute Neuts (auto) 5.31 (1.4-6.5) Sodium 138 (132-148) mmol/L Potassium 3.7 (3.6-5.0) mmol/L Chloride 107 (98-107) mmol/L Carbon Dioxide 25 (21-33) mmol/L Anion Gap 10 (10-20) BUN 7 (7-21) mg/dL Creatinine 0.7 L (0.8-1.5) mg/dl Est GFR ( Amer) > 60 Est GFR (Non-Af Amer) > 60 Random Glucose 102 (70-110) mg/dL Calcium 8.6 (8.4-10.5) mg/dL Phosphorus 3.3 (2.5-4.5) mg/dL Magnesium 1.8 (1.7-2.2) mg/dL Total Bilirubin 1.5 H (0.2-1.3) mg/dL AST 148 H D (17-59) U/L ALT 43 (7-56) U/L Alkaline Phosphatase 98 (38-126) U/L Total Protein 6.0 (5.8-8.3) g/dL Albumin 3.6 (3.0-4.8) g/dL Globulin 2.4 gm/dL Albumin/Globulin Ratio 1.5 (1.1-1.8) Urine Color Yellow (YELLOW) Urine Appearance Clear (CLEAR) Urine pH 7.5 (4.7-8.0) Ur Specific [place] 1.020 (1.005-1.035) Urine Protein Negative (<30 mg/dL) mg/dL Urine Glucose (UA) Negative (NEGATIVE) mg/dL Urine Ketones 40 H (NEGATIVE) mg/dL Urine Blood Moderate H (NEGATIVE) Urine Nitrate Negative (NEGATIVE) Urine Bilirubin Negative (NEGATIVE) Urine Urobilinogen 4.0 H (<1 E.U./dL) E.U./dL Ur Leukocyte Esterase Negative (NEGATIVE) Diane/uL Urine RBC 0 - 2 (0-2) /hpf Urine WBC None (0-6) /hpf Ur Epithelial Cells None (0-5) /hpf Urine Opiates Screen (NEGATIVE) Urine Methadone Screen (NEGATIVE) Ur Barbiturates Screen (NEGATIVE) Ur Phencyclidine Scrn (NEGATIVE) Ur Amphetamines Screen (NEGATIVE) U Benzodiazepines Scrn (NEGATIVE) U Oth Cocaine Metabols (NEGATIVE) U Cannabinoids Screen (NEGATIVE) 09/01/18 Range/Units 21:21 WBC (4.5-11.0) 10^3/uL RBC (3.5-6.1) 10^6/uL Hgb (14.0-18.0) g/dL Hct (42.0-52.0) % MCV (80.0-105.0) fl MCH (25.0-35.0) pg MCHC (31.0-37.0) g/dl RDW (11.5-14.5) % Plt Count (120.0-450.0) 10^3/uL MPV (7.0-11.0) fl Neut % (Auto) (50.0-68.0) % Lymph % (Auto) (22.0-35.0) % Centre % (Auto) (1.0-6.0) % Eos % (Auto) (1.5-5.0) % Baso % (Auto) (0.0-3.0) % Lymph # (Auto) (1.2-3.4) Centre # (Auto) (0.1-0.6) Eos # (Auto) (0.0-0.7) Baso # (Auto) (0.0-2.0) K/mm3 Absolute Neuts (auto) (1.4-6.5) Sodium (132-148) mmol/L Potassium (3.6-5.0) mmol/L Chloride (98-107) mmol/L Carbon Dioxide (21-33) mmol/L Anion Gap (10-20) BUN (7-21) mg/dL Creatinine (0.8-1.5) mg/dl Est GFR ( Amer) Est GFR (Non-Af Amer) Random Glucose (70-110) mg/dL Calcium (8.4-10.5) mg/dL Phosphorus (2.5-4.5) mg/dL Magnesium (1.7-2.2) mg/dL Total Bilirubin (0.2-1.3) mg/dL AST (17-59) U/L ALT (7-56) U/L Alkaline Phosphatase (38-126) U/L Total Protein (5.8-8.3) g/dL Albumin (3.0-4.8) g/dL Globulin gm/dL Albumin/Globulin Ratio (1.1-1.8) Urine Color (YELLOW) Urine Appearance (CLEAR) Urine pH (4.7-8.0) Ur Specific [place] (1.005-1.035) Urine Protein (<30 mg/dL) mg/dL Urine Glucose (UA) (NEGATIVE) mg/dL Urine Ketones (NEGATIVE) mg/dL Urine Blood (NEGATIVE) Urine Nitrate (NEGATIVE) Urine Bilirubin (NEGATIVE) Urine Urobilinogen (<1 E.U./dL) E.U./dL Ur Leukocyte Esterase (NEGATIVE) Diane/uL Urine RBC (0-2) /hpf Urine WBC (0-6) /hpf Ur Epithelial Cells (0-5) /hpf Urine Opiates Screen Negative (NEGATIVE) Urine Methadone Screen Negative (NEGATIVE) Ur Barbiturates Screen Negative (NEGATIVE) Ur Phencyclidine Scrn Negative (NEGATIVE) Ur Amphetamines Screen Negative (NEGATIVE) U Benzodiazepines Scrn Negative (NEGATIVE) U Oth Cocaine Metabols Negative (NEGATIVE) U Cannabinoids Screen Negative (NEGATIVE) Laboratory Results - last 24 hr 09/01/18 09/01/18 09/02/18 21:21 21:21 05:30 WBC 6.9 D RBC 4.71 Hgb 11.4 L Hct 35.9 L MCV 76.2 L MCH 24.2 L MCHC 31.8 RDW 17.4 H Plt Count 131 MPV 8.3 Neut % (Auto) 77.1 H Lymph % (Auto) 14.8 L Centre % (Auto) 5.8 Eos % (Auto) 2.2 Baso % (Auto) 0.1 Lymph # (Auto) 1.0 L Centre # (Auto) 0.4 Eos # (Auto) 0.2 Baso # (Auto) 0.01 Absolute Neuts (auto) 5.31 Sodium Potassium Chloride Carbon Dioxide Anion Gap BUN Creatinine Est GFR ( Amer) Est GFR (Non-Af Amer) Random Glucose Calcium Phosphorus Magnesium Total Bilirubin AST ALT Alkaline Phosphatase Total Protein Albumin Globulin Albumin/Globulin Ratio Urine Color Yellow Urine Appearance Clear Urine pH 7.5 Ur Specific [place] 1.020 Urine Protein Negative Urine Glucose (UA) Negative Urine Ketones 40 H Urine Blood Moderate H Urine Nitrate Negative Urine Bilirubin Negative Urine Urobilinogen 4.0 H Ur Leukocyte Esterase Negative Urine RBC 0 - 2 Urine WBC None Ur Epithelial Cells None Urine Opiates Screen Negative Urine Methadone Screen Negative Ur Barbiturates Screen Negative Ur Phencyclidine Scrn Negative Ur Amphetamines Screen Negative U Benzodiazepines Scrn Negative U Oth Cocaine Metabols Negative U Cannabinoids Screen Negative 09/02/18 05:30 WBC RBC Hgb Hct MCV MCH MCHC RDW Plt Count MPV Neut % (Auto) Lymph % (Auto) Centre % (Auto) Eos % (Auto) Baso % (Auto) Lymph # (Auto) Centre # (Auto) Eos # (Auto) Baso # (Auto) Absolute Neuts (auto) Sodium 138 Potassium 3.7 Chloride 107 Carbon Dioxide 25 Anion Gap 10 BUN 7 Creatinine 0.7 L Est GFR ( Amer) > 60 Est GFR (Non-Af Amer) > 60 Random Glucose 102 Calcium 8.6 Phosphorus 3.3 Magnesium 1.8 Total Bilirubin 1.5 H AST 148 H D ALT 43 Alkaline Phosphatase 98 Total Protein 6.0 Albumin 3.6 Globulin 2.4 Albumin/Globulin Ratio 1.5 Urine Color Urine Appearance Urine pH Ur Specific [place] Urine Protein Urine Glucose (UA) Urine Ketones Urine Blood Urine Nitrate Urine Bilirubin Urine Urobilinogen Ur Leukocyte Esterase Urine RBC Urine WBC Ur Epithelial Cells Urine Opiates Screen Urine Methadone Screen Ur Barbiturates Screen Ur Phencyclidine Scrn Ur Amphetamines Screen U Benzodiazepines Scrn U Oth Cocaine Metabols U Cannabinoids Screen Critical Care Progress Note - Nutrition Nutrition: Nutrition Category Date Time Status NPO Diet [DIET] Diets 09/01/18 Lunch Ordered Attending/Attestation - Attestation I have personally seen and examined this patient.: Yes I have fully participated in the care of the patient.: Yes I have reviewed all pertinent clinical information: Yes Notes (Text): 09/02/18 15:[address] Dill note
--- NOTE | 2018-09-02 12:54 | PN ---
DATE: 09/02/2018 SUBJECTIVE: The patient is seen and examined at the bedside. He is comfortable. He is lethargic. He is on Precedex 1.2 mcg/kg per hour. PHYSICAL EXAMINATION: VITAL SIGNS: His blood pressure 158/92, his heart rate 76, oxygen saturation 99%, and respiratory rate 20. ENT: Head and neck atraumatic. LUNGS: Clear to auscultation bilaterally. HEART: Regular rate and rhythm. S1, S2 normal. ABDOMEN: Soft, nontender, nondistended. MUSCULOSKELETAL: No C/C/E. NEUROLOGIC: The patient moves all extremities spontaneously. SKIN: Moist. PSYCH: The patient is lethargic, however, easily arousable. LABORATORY DATA: WBC 6.9, hemoglobin 11.4, platelet count 131. Sodium 138, potassium 3.7, chloride 107, carbon dioxide 25, BUN 7, creatinine 0.7, glucose 102, AST 148, ALT 43, total bilirubin 1.5, down from 2.1. Alcohol level 339. The rest of the urine drug screen is negative. Urine is also negative for nitrites and leukocyte esterase. MEDICATIONS: Lovenox 40 mg subcu daily, Lexapro, folic acid, lactulose 20 g p.o. at bedtime, Ativan p.r.n. and every 4 hours, Zofran p.r.n., Protonix, Seroquel 25 mg p.o. at bedtime, normal saline 125 mL/hour, thiamine. ASSESSMENT AND PLAN: This is a 47-year-old gentleman who presented to intensive care unit for severe alcohol withdrawal syndrome. The patient is currently on Precedex drip. He is also on benzos p.r.n and standing dose and Seroquel at night. At present time, we will proceed with optimization of his circadian and sleep pattern, frequent reorientation exposing him to as much light as possible during the daytime and as little as possible during the nighttime. We will continue to target euvolemia, euglycemia, normothermia and oxygen saturation more than 90%. We will continue with deep vein thrombosis and gastrointestinal prophylaxis. ccm time 40 min Jordan Dill MD [facility] # [id number]
--- NOTE | 2018-09-02 15:56 | CP.PCM.PN ---
<Winter Shepherd - Last Filed: 09/02/18 16:06> Subjective - Date & Time of Evaluation Date of Evaluation: 09/02/18 Time of Evaluation: 15:52 - Subjective Subjective: INTERNAL MEDICINE PROGRESS NOTE FOR DR. BERNADETTE Shepherd PGY1 Pt seen and examined at bedside in ICU this am. Overnight, patient was very agitated and was noted to have a CIWA of 24, 15 and 8. Pt as somnolent and sleeping. He was in soft restraints. He was on precedex drip at 1.2 mcg/kg/hr and IVF @ 125cc/hr. ROS unattainable as pt is sedated Objective - Vital Signs/Intake and Output Vital Signs (last 24 hours): Temp Pulse Resp BP Pulse Ox 98.2 F 71 19 122/80 95 09/02/18 00:00 09/02/18 14:30 09/02/18 14:30 09/02/18 14:00 09/02/18 14:30 Intake and Output: 09/02/18 09/02/18 06:59 18:59 Intake Total 2140 200 Output Total 2150 Balance -10 200 - Medications Medications: Current Medications Enoxaparin Sodium (Lovenox) 40 mg SC DAILY DARLYN; Protocol Last Admin: 09/02/18 09:30 Dose: 40 mg Folic Acid (Folic Acid) 1 mg PO DAILY DARLYN Last Admin: 09/02/18 10:38 Dose: 1 mg Sodium Chloride (Sodium Chloride 0.9%) 1,000 mls @ 125 mls/hr IV .Q8H DARLYN Last Admin: 09/02/18 09:40 Dose: 125 mls/hr Dexmedetomidine HCl (Precedex 400mcg/100ml) 400 mcg in 100 mls @ 4.763 mls/hr IV .Q21H PRN; Protocol PRN Reason: Agitation Last Admin: 09/02/18 14:00 Dose: 1.2 mcg/kg/hr, 28.576 mls/hr Lactulose (Enulose) 20 gm PO HS DARLYN Last Admin: 09/01/18 22:10 Dose: Not Given Lorazepam (Ativan) 1 mg IVP Q2 PRN; Protocol PRN Reason: Seizure activity Last Admin: 09/02/18 08:12 Dose: 1 mg Lorazepam (Ativan) 2 mg IVP Q4H DARLYN; Protocol Last Admin: 09/02/18 13:41 Dose: 2 mg Multivitamins (Thera Tab) 1 tab PO 0800 [facility] Last Admin: 09/02/18 10:38 Dose: 1 tab Ondansetron HCl (Zofran Inj) 4 mg IVP Q4H PRN PRN Reason: Nausea/Vomiting Last Admin: 08/31/18 18:21 Dose: 4 mg Pantoprazole Sodium (Protonix Inj) 40 mg IVP DAILY [facility] Last Admin: 09/02/18 09:38 Dose: 40 mg Quetiapine Fumarate (Seroquel) 12.5 mg PO BID [facility]; Protocol Last Admin: 09/02/18 10:39 Dose: 12.5 mg Quetiapine Fumarate (Seroquel) 25 mg PO HS [facility]; Protocol Last Admin: 09/01/18 21:40 Dose: Not Given Thiamine HCl (Vitamin B1 Tab) 100 mg PO DAILY [facility] Last Admin: 09/02/18 10:30 Dose: 100 mg - Labs Labs: 09/02/18 05:30 09/02/18 05:30 PT 12.4 SECONDS (9.4-12.5) 08/31/18 11:30 INR 1.10 08/31/18 11:30 APTT 29.9 Seconds (26.9-38.3) 08/31/18 11:30 - Constitutional Appears: Well, Non-toxic, No Acute Distress - Eye Exam Eye Exam: PERRL - ENT Exam ENT Exam: Normal Exam - Neck Exam Neck Exam: Normal Inspection - Respiratory Exam Respiratory Exam: Clear to Ausculation Bilateral, NORMAL BREATHING PATTERN - Cardiovascular Exam Cardiovascular Exam: REGULAR RHYTHM, +S1, +S2 - GI/Abdominal Exam GI & Abdominal Exam: Soft, Normal Bowel Sounds - Extremities Exam Extremities Exam: Normal Inspection Additional comments: Soft wrist restraints in place. No deformities noted on b/l upper extremities - Back Exam Back Exam: NORMAL INSPECTION - Psychiatric Exam Psychiatric exam: Normal Affect, Normal Mood - Skin Skin Exam: Dry, Intact, Warm Assessment and Plan - Assessment and Plan (Free Text) Assessment: 47 year old male with a PMH of alcohol abuse, PTSD, anxiety, depression, who presented with symptoms of ETOH withdrawal. Plan: Alcohol withdrawal CIWA elevated overnight. HAND ROUNDER called yest afternoon. Ativan administered Continue precedex drip in ICU Continue ativan 2q4 with a 1q2 PRN Fall precautions Seizure/Aspiration/Fall precautions Cont MV, folate, thiamine Optimize sleep circadian rhythms Suicidal Ideation in the setting of known psychiatric illness (PTSD, anxiety and depression) Psych consulted, recs appreciated Started by psych on quetiapine and lexapro Cont 1:1 sitter History of hepatic encephalopathy Will continue home lactulose at 20mg PO HS Monitor clinically Tobacco Abuse Will advise cessation once withdrawals end/more oriented DVT/GI ppx: Protonix/LVX Case seen, examined and discussed with attending physician, Dr. Bernadette Shepherd PGY1 <Kiera Hernandez - Last Filed: 09/02/18 17:44> Objective - Vital Signs/Intake and Output Vital Signs (last 24 hours): Temp Pulse Resp BP Pulse Ox 98.2 F 71 19 122/80 95 09/02/18 00:00 09/02/18 14:30 09/02/18 14:30 09/02/18 14:00 09/02/18 14:30 Intake and Output: 09/02/18 09/02/18 06:59 18:59 Intake Total 2140 300 Output Total 2150 Balance -10 300 - Medications Medications: Current Medications Enoxaparin Sodium (Lovenox) 40 mg SC DAILY [facility]; Protocol Last Admin: 09/02/18 09:30 Dose: 40 mg Folic Acid (Folic Acid) 1 mg PO DAILY [facility] Last Admin: 09/02/18 10:38 Dose: 1 mg Sodium Chloride (Sodium Chloride 0.9%) 1,000 mls @ 125 mls/hr IV .Q8H [facility] Last Admin: 09/02/18 17:22 Dose: 125 mls/hr Dexmedetomidine HCl (Precedex 400mcg/100ml) 400 mcg in 100 mls @ 4.763 mls/hr IV .Q21H PRN; Protocol PRN Reason: Agitation Last Admin: 09/02/18 17:23 Dose: 1 mcg/kg/hr, 23.814 mls/hr Lactulose (Enulose) 20 gm PO HS [facility] Last Admin: 09/01/18 22:10 Dose: Not Given Lorazepam (Ativan) 1 mg IVP Q2 PRN; Protocol PRN Reason: Seizure activity Last Admin: 09/02/18 16:36 Dose: 1 mg Lorazepam (Ativan) 2 mg IVP Q4H [facility]; Protocol Last Admin: 09/02/18 13:41 Dose: 2 mg Multivitamins (Thera Tab) 1 tab PO 0800 [facility] Last Admin: 09/02/18 10:38 Dose: 1 tab Ondansetron HCl (Zofran Inj) 4 mg IVP Q4H PRN PRN Reason: Nausea/Vomiting Last Admin: 08/31/18 18:21 Dose: 4 mg Pantoprazole Sodium (Protonix Inj) 40 mg IVP DAILY [facility] Last Admin: 09/02/18 09:38 Dose: 40 mg Quetiapine Fumarate (Seroquel) 12.5 mg PO BID [facility]; Protocol Last Admin: 09/02/18 10:39 Dose: 12.5 mg Quetiapine Fumarate (Seroquel) 25 mg PO HS [facility]; Protocol Last Admin: 09/01/18 21:40 Dose: Not Given Thiamine HCl (Vitamin B1 Tab) 100 mg PO DAILY [facility] Last Admin: 09/02/18 10:30 Dose: 100 mg - Labs Labs: 09/02/18 05:30 09/02/18 05:30 PT 12.4 SECONDS (9.4-12.5) 08/31/18 11:30 INR 1.10 08/31/18 11:30 APTT 29.9 Seconds (26.9-38.3) 08/31/18 11:30 Attending/Attestation - Attestation I have personally seen and examined this patient.: Yes I have fully participated in the care of the patient.: Yes I have reviewed all pertinent clinical information, including history, physical exam and plan: Yes Notes (Text): 09/02/18 17:36 Attending note; Patient seen and examined with resident in ICU. Patient is currently sedated with precedex drip. Vitals stable. Patient is a 47-year-old male with past medical history significant for alcohol abuse, alcohol withdrawal, liver cirrhosis, bipolar disorder, and tobacco abuse that presents to the emergency room with alcohol intoxication and withdrawal. 1. Alcohol withdrawal; currently on precedex drip for alcohol withdrawal sympt oms. Continue to monitor closely in ICU. Started on banana bag with thiamine, folic acid, and multivitamin. Continue IV Ativan. 2. Alcohol abuse. Patient with a history of liver cirrhosis and encephalopathy. Needs complete alcohol cessation. 3. Anxiety/depression; psychiatric evaluation appreciated. Continue Ativan for now. 4. Tobacco abuse. Patient counseled at length on cessation. On NicoDerm patch. The patient closely in ICU. Patient will be referred to outpatient rehabilitation upon discharge. Prognosis is poor secondary to alcohol abuse and noncompliance with follow-up.
--- NOTE | 2018-09-02 17:15 | PN ---
DATE: 09/02/2018 SUBJECTIVE: The patient was seen and examined today in ICU. The patient is status post medication. The patient got Ativan IV push at 9 mL as well as Seroquel at 10:39. The patient also got haloperidol on 09/01/2018. The patient was deeply medicated when this verse writer rounded. The patient was able to open his eyes, but no meaningful conversation possible. This verse writer reviewed previous notes and discussed with nursing staff on the medical side. As per Dr. West's note, the patient has a history of severe alcohol use disorder and the patient was verbalizing thoughts of harming himself while being under the influence of alcohol, and most likely the patient is in alcohol withdrawals and alcohol withdrawal delirium. The patient had visual and auditory hallucinations. Dr. West restarted Lexapro as well as Seroquel and requested this verse writer to follow up on this patient today. VITAL SIGNS: Reviewed. The patient's pulse is 75, blood pressure 133/83, respirations 23, oxygen saturation 95. MEDICATIONS: Reviewed. The patient is on Precedex drip. The patient is on Lovenox, Lexapro, folic acid, lactulose, Ativan 1 mg IV push every 2 hours as needed for seizure activities and 2 mg IV push every 4 hours as scheduled. The patient is on multivitamin, Zofran, Protonix, Seroquel 12.5 mg twice a day and 25 mg at the nighttime, sodium chloride and thiamine. LABORATORY DATA: Reviewed. Most recent was from today. Toxicology on 08/31/2018, alcohol level was 339, most likely the patient is in withdrawal delirium. MENTAL STATUS EXAMINATION: The patient was deeply sedated. The patient was able to open his eyes and fell back asleep. A full mental status examination is not possible at least today. The patient also is on Precedex. IMPRESSION: Most likely, the patient is in delirium stage, alcohol withdrawal delirium which seems to be severe with psychosis, alcohol use disorder. PLAN: This verse writer would discontinue Lexapro because there is no urgency for that medication to be resumed. The patient also will continue on Seroquel as well as Ativan. Please monitor seizure activities. We will follow up and advise accordingly. Most likely, this verse writer would recommend inpatient rehab, but firstly the patient is to be improved from the medical standpoint. Thank you very much for letting me participate in the care of your patient. Should you have any questions, give me a call back. The patient is not psychiatrically cleared. Magalys Osei MD
[2018-09-02] MEDS: Folic Acid 1 MG, Thiamine 100 MG, Multivitamin (MVI) 10 ML in Dextrose 5% In Water 1,00... IV SCH (18:39)
[2018-09-03 00:38] VITALS: TEMP 98.7
[2018-09-03] MEDS: Dexmedetomidine 400mcg/100mL 400 MCG/100 ML BOTTLE IV PRN ×2 (02:48→08:00)
[2018-09-03] MEDS: Folic Acid 1 MG, Thiamine 100 MG, Multivitamin (MVI) 10 ML in Dextrose 5% In Water 1,00... IV SCH (03:18)
[2018-09-03 06:59] LABS: BASO # 0.01 K/mm3 (0.0-2.0); BASO % 0.2 % (0.0-3.0); EOS # 0.3 (0.0-0.7); HEMOGLOBIN 11.8 g/dL (14.0-18.0); LYMPH # 1.3 (1.2-3.4); LYMPH % 19.8 % (22.0-35.0); MEAN CELL VOLUME 75.6 fl (80.0-105.0); MEAN CORPUSCULAR HEMOGLOBIN 23.8 pg (25.0-35.0); MEAN CORPUSCULAR HGB CONC 31.6 g/dl (31.0-37.0); MONO # 0.4 (0.1-0.6); MONO % 6.4 % (1.0-6.0); RBC 4.95 10^6/uL (3.5-6.1); RED CELL DISTRIBUTION WIDTH 16.9 % (11.5-14.5); WHITE BLOOD COUNT 6.4 10^3/uL (4.5-11.0)
[2018-09-03 07:48] LABS: ALB/GLOB RATIO 1.5 (1.1-1.8); ALBUMIN 3.7 g/dL (3.0-4.8); ALT/SGPT 46 U/L (7-56); AST/SGOT 147 U/L (17-59); BLOOD UREA NITROGEN 6 mg/dL (7-21); CALCIUM 8.5 mg/dL (8.4-10.5); GFR NON-AFRICAN AMERICAN > 60
[2018-09-03] MEDS: Multivitamin Therapeutic Tab PO SCH (10:04)
[2018-09-03] MEDS: Enoxaparin 40 mg Syringe SC SCH (10:05)
--- NOTE | 2018-09-03 14:02 | CP.CCUPN ---
<Carlos Desai - Last Filed: 09/03/18 14:28> CCU Subjective - Physician Review Subjective (Free Text): 09/02/18 12:23Carlos Desai PGY1 Critical Care Progress Note Patient seen and examined at bedside this morning. No acute events reported overnight with CIWA score of 2 today from 24 yesterday. Titrating down precedx drip as tolerated, curently on 0.5mcg/kg/hr from 1.2 mcg/kg/hr yesterday. Is AOx3 and denies CP, SOB, abdominal pain, headaches, nausea, vomiting, numbness and tingling. CCU Objective - Vital Signs / Intake & Output Vital Signs (Last 4 hours): Vital Signs Pulse Resp BP Pulse Ox 09/03/18 11:30 66 17 97 09/03/18 11:00 68 17 128/84 97 09/03/18 10:30 69 18 94 L 09/03/18 10:00 83 26 H 135/59 L 96 Intake and Output (Last 8hrs): Intake & Output 09/02/18 09/03/18 09/03/18 22:59 06:59 14:59 Intake Total 1919 1551 136 Output Total 1750 1999 Balance 169 -449 136 Weight 210 lb Intake: IV 1719 1551 136 Left Wrist 1500 1470 Oral 200 0 Output: Urine 1750 1999 Urethral (Haddad) 1750 2000 Emesis 0 Other: # Bowel Movements 0 - Physical Exam Head: Positive for: Atraumatic, Normocephalic Pupils: Positive for: PERRL Extroacular Muscles: Positive for: EOMI Conjunctiva: Positive for: Normal Mouth: Positive for: Moist Mucous Membranes Neck: Positive for: Normal Range of Motion Respiratory/Chest: Positive for: Clear to Auscultation, Good Air Exchange. Negative for: Respiratory Distress, Accessory Muscle Use Cardiovascular: Positive for: Regular Rate and Rhythm, Normal S1, S2. Negative for: Murmurs Abdomen: Positive for: Normal Bowel Sounds. Negative for: Tenderness, Distention, Peritoneal Signs Back: Positive for: Normal Inspection Upper Extremity: Positive for: Normal Inspection. Negative for: Cyanosis, Edema Lower Extremity: Positive for: Normal Inspection. Negative for: Edema Neurological: Positive for: GCS=15, CN II-XII Intact, Speech Normal Skin: Positive for: Warm, Dry, Normal Color. Negative for: Rashes Psychiatric: Positive for: Alert, Oriented x 3, Intoxicated - Medications Active Medications: Active Medications Generic Name Dose Route Start Last Admin Trade Name Freq PRN Reason Stop Dose Admin Enoxaparin Sodium 40 mg 09/02/18 10:00 09/03/18 10:05 Lovenox SC 40 mg DAILY DARLYN Administration Protocol Folic Acid 1 mg 09/01/18 10:00 09/03/18 10:04 Folic Acid PO 1 mg DAILY DARLYN Administration Dexmedetomidine HCl 400 mcg in 100 mls @ 4.763 mls/hr 09/01/18 14:58 09/03/18 12:00 Precedex 400mcg/100ml IV 0.4 mcg/kg/hr .Q21H PRN 9.525 mls/hr Agitation Titration Protocol 0.2 MCG/KG/HR Folic Acid 1 mg/ Thiamine HCl 1,011.2 mls @ 100 mls/hr 09/02/18 17:45 09/03/18 03:18 100 mg/ Multivitamins/Vitamin IV 100 mls/hr C 10 ml/ Dextrose .Q10H7M DARLYN Administration Lactulose 20 gm 09/01/18 22:00 09/02/18 22:37 Enulose PO Not Given HS DARLYN Lorazepam 1 mg 08/31/18 17:59 09/02/18 19:37 Ativan IVP 1 mg Q2 PRN Administration Seizure activity Protocol Lorazepam 2 mg 09/01/18 09:00 09/03/18 10:10 Ativan IVP 2 mg Q4H DAR[facility]N Administration Protocol Multivitamins 1 tab 09/01/18 08:00 09/03/18 10:04 Thera Tab PO 1 tab 0800 [facility] Administration Nicotine 1 patch 09/02/18 17:45 09/03/18 10:04 Nicoderm Cq TD 1 patch DAILY [facility]AR[facility]N Administration Ondansetron HCl 4 mg 08/31/18 18:10 08/31/18 18:21 Zofran Inj IVP 4 mg Q4H PRN Administration Nausea/Vomiting Pantoprazole Sodium 40 mg 09/02/18 10:00 09/03/18 10:07 Protonix Inj IVP 40 mg DAILY [facility]AR[facility]N Administration Quetiapine Fumarate 50 mg 09/03/18 22:00 Seroquel PO AMHS DARLYN Protocol Thiamine HCl 100 mg 09/01/18 10:00 09/02/18 10:30 Vitamin B1 Tab PO 100 mg DAILY [facility]AR[facility]N Administration - Patient Studies Lab Studies: Microbiology Studies 09/01/18 21:21 MRSA Culture (Admit) - Final Naris MRSA NOT DETECTED 09/01/18 21:21 Urine Culture - Final Urine,Catheterized No Growth (<1,000 CFU/ML) Lab Studies 09/03/18 09/03/18 Range/Units 07:00 05:40 WBC 6.4 (4.5-11.0) 10^3/uL RBC 4.95 (3.5-6.1) 10^6/uL Hgb 11.8 L (14.0-18.0) g/dL Hct 37.4 L (42.0-52.0) % MCV 75.6 L (80.0-105.0) fl MCH 23.8 L (25.0-35.0) pg MCHC 31.6 (31.0-37.0) g/dl RDW 16.9 H (11.5-14.5) % Plt Count 143 (120.0-450.0) 10^3/uL MPV 9.0 (7.0-11.0) fl Neut % (Auto) 68.6 H (50.0-68.0) % Lymph % (Auto) 19.8 L (22.0-35.0) % [place] % (Auto) 6.4 H (1.0-6.0) % Eos % (Auto) 5.0 (1.5-5.0) % Baso % (Auto) 0.2 (0.0-3.0) % Lymph # (Auto) 1.3 (1.2-3.4) [place] # (Auto) 0.4 (0.1-0.6) Eos # (Auto) 0.3 (0.0-0.7) Baso # (Auto) 0.01 (0.0-2.0) K/mm3 Absolute Neuts (auto) 4.37 (1.4-6.5) Sodium 134 (132-148) mmol/L Potassium 3.1 L (3.6-5.0) mmol/L Chloride 99 (98-107) mmol/L Carbon Dioxide 29 (21-33) mmol/L Anion Gap 9 L (10-20) BUN 6 L (7-21) mg/dL Creatinine 0.5 L (0.8-1.5) mg/dl Est GFR ( Amer) > 60 Est GFR (Non-Af Amer) > 60 Random Glucose 109 (70-110) mg/dL Calcium 8.5 (8.4-10.5) mg/dL Phosphorus 3.9 (2.5-4.5) mg/dL Magnesium 1.6 L (1.7-2.2) mg/dL Total Bilirubin 1.5 H (0.2-1.3) mg/dL AST 147 H (17-59) U/L ALT 46 (7-56) U/L Alkaline Phosphatase 101 (38-126) U/L Total Protein 6.2 (5.8-8.3) g/dL Albumin 3.7 (3.0-4.8) g/dL Globulin 2.5 gm/dL Albumin/Globulin Ratio 1.5 (1.1-1.8) Laboratory Results - last 24 hr 09/03/18 09/03/18 05:40 07:00 WBC 6.4 RBC 4.95 Hgb 11.8 L Hct 37.4 L MCV 75.6 L MCH 23.8 L MCHC 31.6 RDW 16.9 H Plt Count 143 MPV 9.0 Neut % (Auto) 68.6 H Lymph % (Auto) 19.8 L [place] % (Auto) 6.4 H Eos % (Auto) 5.0 Baso % (Auto) 0.2 Lymph # (Auto) 1.3 [place] # (Auto) 0.4 Eos # (Auto) 0.3 Baso # (Auto) 0.01 Absolute Neuts (auto) 4.37 Sodium 134 Potassium 3.1 L Chloride 99 Carbon Dioxide 29 Anion Gap 9 L BUN 6 L Creatinine 0.5 L Est GFR ( Amer) > 60 Est GFR (Non-Af Amer) > 60 Random Glucose 109 Calcium 8.5 Phosphorus 3.9 Magnesium 1.6 L Total Bilirubin 1.5 H AST 147 H ALT 46 Alkaline Phosphatase 101 Total Protein 6.2 Albumin 3.7 Globulin 2.5 Albumin/Globulin Ratio 1.5 Critical Care Progress Note - Nutrition Nutrition: Nutrition Category Date Time Status Regular Diet [DIET] Diets 09/03/18 Lunch Ordered Assessment/Plan - Assessment and Plan (Free Text) Assessment: 47 year old male with past medical history of alcohol abuse, PTSD, anxiety, dep ression, cirrhosis is currently diagnosed with severe agitation 2/2 to delirium tremens from alcohol withdrawal vs. acute psychosis. Patient needing decreasing amount of precedex. Is AOx3 and talking comfortably during exam this morning. Plan: Neuro: Agitation 2/2 to delirium tremens -CIWA 2 this morning from 24 yesterday -Alcohol: 339 on presentation -Patient requiring precedex drip at 1.2 mg/min, unable to titrate down due to agitation and combative behavior, will attempt again as tolerated -Patient currently on ativan 2 mg IV Q4, ativan 1 mg Q2 PRN for alcohol withdrawal -continue folic acid, multivitamin, and thiamine for alcohol withdrawal. -continue seroquel 12.5 BID, 25 mg HS for psychosis -Aspiration and seizure precautions. -1:1 sitter, soft restraints on -Monitor neuro status -psych on consult Cardio: -HR 60-70 overnight -Maintain MAP>65. -monitor hemodynamics, currently hemodynamically stable Pulm: -Maintain O2 saturation>90%. -O2 NC PRN -Head of bed to 30 degrees GI: Cirrhosis -Ammonia: 12 -Continue lactulose 20 mg daily Diet -advancd to regular diet today -protonix for ppx /Nephro: -BUN/Cr stable -UDS negative -Good urine output, 3.7L overnight -Replete electrolytes as needed. -Maintain euvolemia. Endo: -Maintain euglycemia. Heme/Onc: -Hg is 11.8 today from 11.4 -No signs of HD compromise -DVT ppx with lovenox ID: -Afebrile, no leukocytosis -urine culture shows no growth Further recommendations per Dr. Dill <Jordan Dill - Last Filed: 09/03/18 15:44> CCU Objective - Vital Signs / Intake & Output Intake and Output (Last 8hrs): Intake & Output 09/03/18 09/03/18 09/03/18 06:59 14:59 22:59 Intake Total 1551 136 Output Total 1999 Balance -449 136 Weight 210 lb Intake: IV 1551 136 Left Wrist 1470 Oral 0 Output: Urine 1999 Urethral (Haddad) 1999 Emesis 0 Other: # Bowel Movements 0 - Medications Active Medications: Active Medications Generic Name Dose Route Start Last Admin Trade Name Freq PRN Reason Stop Dose Admin Enoxaparin Sodium 40 mg 09/02/18 10:00 09/03/18 10:05 Lovenox SC 40 mg DAILY DARLYN Administration Protocol Folic Acid 1 mg 09/01/18 10:00 09/03/18 10:04 Folic Acid PO 1 mg DAILY [facility]AR[facility]N Administration Dexmedetomidine HCl 400 mcg in 100 mls @ 4.763 mls/hr 09/01/18 14:58 09/03/18 12:00 Precedex 400mcg/100ml IV 0.4 mcg/kg/hr .Q21H PRN 9.525 mls/hr Agitation Titration Protocol 0.2 MCG/KG/HR Folic Acid 1 mg/ Thiamine HCl 1,011.2 mls @ 100 mls/hr 09/02/18 17:45 09/03/18 03:18 100 mg/ Multivitamins/Vitamin IV 100 mls/hr C 10 ml/ Dextrose .Q10H7M DARLYN Administration Lactulose 20 gm 09/01/18 22:00 09/02/18 22:37 Enulose PO Not Given HS DAR[facility]N Lorazepam 1 mg 08/31/18 17:59 09/02/18 19:37 Ativan IVP 1 mg Q2 PRN Administration Seizure activity Protocol Lorazepam 2 mg 09/01/18 09:00 09/03/18 10:10 Ativan IVP 2 mg Q4H DARLYN Administration Protocol Multivitamins 1 tab 09/01/18 08:00 09/03/18 10:04 Thera Tab PO 1 tab 0800 [facility] Administration Nicotine 1 patch 09/02/18 17:45 09/03/18 10:04 Nicoderm Cq TD 1 patch DAILY [facility] Administration Ondansetron HCl 4 mg 08/31/18 18:10 08/31/18 18:21 Zofran Inj IVP 4 mg Q4H PRN Administration Nausea/Vomiting Pantoprazole Sodium 40 mg 09/02/18 10:00 09/03/18 10:07 Protonix Inj IVP 40 mg DAILY DARLYN Administration Quetiapine Fumarate 50 mg 09/03/18 22:00 Seroquel PO AMHS DARLYN Protocol Thiamine HCl 100 mg 09/01/18 10:00 09/02/18 10:30 Vitamin B1 Tab PO 100 mg DAILY DAR[facility]N Administration - Patient Studies Lab Studies: Microbiology Studies 09/01/18 21:21 MRSA Culture (Admit) - Final Naris MRSA NOT DETECTED 09/01/18 21:21 Urine Culture - Final Urine,Catheterized No Growth (<1,000 CFU/ML) Lab Studies 09/03/18 09/03/18 Range/Units 07:00 05:40 WBC 6.4 (4.5-11.0) 10^3/uL RBC 4.95 (3.5-6.1) 10^6/uL Hgb 11.8 L (14.0-18.0) g/dL Hct 37.4 L (42.0-52.0) % MCV 75.6 L (80.0-105.0) fl MCH 23.8 L (25.0-35.0) pg MCHC 31.6 (31.0-37.0) g/dl RDW 16.9 H (11.5-14.5) % Plt Count 143 (120.0-450.0) 10^3/uL MPV 9.0 (7.0-11.0) fl Neut % (Auto) 68.6 H (50.0-68.0) % Lymph % (Auto) 19.8 L (22.0-35.0) % [place] % (Auto) 6.4 H (1.0-6.0) % Eos % (Auto) 5.0 (1.5-5.0) % Baso % (Auto) 0.2 (0.0-3.0) % Lymph # (Auto) 1.3 (1.2-3.4) [place] # (Auto) 0.4 (0.1-0.6) Eos # (Auto) 0.3 (0.0-0.7) Baso # (Auto) 0.01 (0.0-2.0) K/mm3 Absolute Neuts (auto) 4.37 (1.4-6.5) Sodium 134 (132-148) mmol/L Potassium 3.1 L (3.6-5.0) mmol/L Chloride 99 (98-107) mmol/L Carbon Dioxide 29 (21-33) mmol/L Anion Gap 9 L (10-20) BUN 6 L (7-21) mg/dL Creatinine 0.5 L (0.8-1.5) mg/dl Est GFR ( Amer) > 60 Est GFR (Non-Af Amer) > 60 Random Glucose 109 (70-110) mg/dL Calcium 8.5 (8.4-10.5) mg/dL Phosphorus 3.9 (2.5-4.5) mg/dL Magnesium 1.6 L (1.7-2.2) mg/dL Total Bilirubin 1.5 H (0.2-1.3) mg/dL AST 147 H (17-59) U/L ALT 46 (7-56) U/L Alkaline Phosphatase 101 (38-126) U/L Total Protein 6.2 (5.8-8.3) g/dL Albumin 3.7 (3.0-4.8) g/dL Globulin 2.5 gm/dL Albumin/Globulin Ratio 1.5 (1.1-1.8) Laboratory Results - last 24 hr 09/03/18 09/03/18 05:40 07:00 WBC 6.4 RBC 4.95 Hgb 11.8 L Hct 37.4 L MCV 75.6 L MCH 23.8 L MCHC 31.6 RDW 16.9 H Plt Count 143 MPV 9.0 Neut % (Auto) 68.6 H Lymph % (Auto) 19.8 L [place] % (Auto) 6.4 H Eos % (Auto) 5.0 Baso % (Auto) 0.2 Lymph # (Auto) 1.3 [place] # (Auto) 0.4 Eos # (Auto) 0.3 Baso # (Auto) 0.01 Absolute Neuts (auto) 4.37 Sodium 134 Potassium 3.1 L Chloride 99 Carbon Dioxide 29 Anion Gap 9 L BUN 6 L Creatinine 0.5 L Est GFR ( Amer) > 60 Est GFR (Non-Af Amer) > 60 Random Glucose 109 Calcium 8.5 Phosphorus 3.9 Magnesium 1.6 L Total Bilirubin 1.5 H AST 147 H ALT 46 Alkaline Phosphatase 101 Total Protein 6.2 Albumin 3.7 Globulin 2.5 Albumin/Globulin Ratio 1.5 Critical Care Progress Note - Nutrition Nutrition: Nutrition Category Date Time Status Regular Diet [DIET] Diets 09/03/18 Lunch Ordered Attending/Attestation - Attestation I have personally seen and examined this patient.: Yes I have fully participated in the care of the patient.: Yes I have reviewed all pertinent clinical information: Yes Notes (Text): 09/03/18 15:42 47 yo male with etoh withdrawal. off of precedex drip. alert and awake. tolerates PO nutrition and hydration. on benzos taper and seroquel at night. optimize sleep and circadian rhtyhms, frequent re-orientation. dvt/gi prophylaxis. ok to downgrade to remote tele ccm time 40 min
--- NOTE | 2018-09-03 15:44 | CP.PCM.PN ---
<Winter Shepherd - Last Filed: 09/03/18 15:39> Subjective - Date & Time of Evaluation Date of Evaluation: 09/03/18 Time of Evaluation: 12:00 - Subjective Subjective: INTERNAL MEDICINE PROGRESS NOTE FOR DR. BERNADETTE Shepherd PGY1 Pt seen and examined at bedside in ICU this am. No acute nursing events overnight. Pt is resting comfortably and conversing well. He is on soft wrist restraints and currently on precedex drip @0.5mcg/kg/h. He denies any complaints this am. He denies shaking, tremors or agitation. 12 point ROS is negative. Objective - Vital Signs/Intake and Output Vital Signs (last 24 hours): Temp Pulse Resp BP Pulse Ox 98.7 F 66 17 128/84 97 09/03/18 00:00 09/03/18 11:30 09/03/18 11:30 09/03/18 11:00 09/03/18 11:30 Intake and Output: 09/03/18 09/03/18 06:59 18:59 Intake Total 1645 136 Output Total 2000 Balance -355 136 - Medications Medications: Current Medications Enoxaparin Sodium (Lovenox) 40 mg SC DAILY [facility]; Protocol Last Admin: 09/03/18 10:05 Dose: 40 mg Folic Acid (Folic Acid) 1 mg PO DAILY [facility] Last Admin: 09/03/18 10:04 Dose: 1 mg Dexmedetomidine HCl (Precedex 400mcg/100ml) 400 mcg in 100 mls @ 4.763 mls/hr IV .Q21H PRN; Protocol PRN Reason: Agitation Last Titration: 09/03/18 12:00 Dose: 0.4 mcg/kg/hr, 9.525 mls/hr Folic Acid 1 mg/ Thiamine HCl 100 mg/ Multivitamins/Vitamin C 10 ml/ Dextrose 1,011.2 mls @ 100 mls/hr IV .Q10H7M [facility] Last Admin: 09/03/18 03:18 Dose: 100 mls/hr Lactulose (Enulose) 20 gm PO HS [facility] Last Admin: 09/02/18 22:37 Dose: Not Given Lorazepam (Ativan) 1 mg IVP Q2 PRN; Protocol PRN Reason: Seizure activity Last Admin: 09/02/18 19:37 Dose: 1 mg Lorazepam (Ativan) 2 mg IVP Q4H [facility]; Protocol Last Admin: 09/03/18 10:10 Dose: 2 mg Multivitamins (Thera Tab) 1 tab PO 0800 [facility] Last Admin: 09/03/18 10:04 Dose: 1 tab Nicotine (Nicoderm Cq) 1 patch TD DAILY [facility] Last Admin: 09/03/18 10:04 Dose: 1 patch Ondansetron HCl (Zofran Inj) 4 mg IVP Q4H PRN PRN Reason: Nausea/Vomiting Last Admin: 08/31/18 18:21 Dose: 4 mg Pantoprazole Sodium (Protonix Inj) 40 mg IVP DAILY [facility] Last Admin: 09/03/18 10:07 Dose: 40 mg Quetiapine Fumarate (Seroquel) 50 [facility]; Protocol Thiamine HCl (Vitamin B1 Tab) 100 mg PO DAILY [facility] Last Admin: 09/02/18 10:30 Dose: 100 mg - Labs Labs: 09/03/18 05:40 09/03/18 07:00 PT 12.4 SECONDS (9.4-12.5) 08/31/18 11:30 INR 1.10 08/31/18 11:30 APTT 29.9 Seconds (26.9-38.3) 08/31/18 11:30 - Constitutional Appears: Well, Non-toxic, No Acute Distress - Head Exam Head Exam: NORMAL INSPECTION, NORMOCEPHALIC - Eye Exam Eye Exam: EOMI, Normal appearance - ENT Exam ENT Exam: Mucous Membranes Moist, Normal Exam - Neck Exam Neck Exam: Normal Inspection. absent: Meningismus - Respiratory Exam Respiratory Exam: Clear to Ausculation Bilateral, NORMAL BREATHING PATTERN - Cardiovascular Exam Cardiovascular Exam: REGULAR RHYTHM, +S1, +S2 - GI/Abdominal Exam GI & Abdominal Exam: Soft. absent: Tenderness, Rebound - Extremities Exam Extremities Exam: Normal Inspection. absent: Calf Tenderness - Back Exam Back Exam: NORMAL INSPECTION - Neurological Exam Neurological Exam: Alert, Awake, Oriented x3 - Psychiatric Exam Psychiatric exam: Normal Affect, Normal Mood - Skin Skin Exam: Dry, Intact, Warm Assessment and Plan - Assessment and Plan (Free Text) Assessment: 47 year old male with a PMH of alcohol abuse, PTSD, anxiety, depression, who presented with symptoms of ETOH withdrawal. Plan: Alcohol withdrawal most recent CIWA this am was 2 Continue precedex drip in ICU, continue to monitor in ICU Continue ativan 2q4 with a 1q2 PRN Tolerating po, continue MV, folate, thiamine Fall precautions Seizure/Aspiration/Fall precautions Optimize sleep circadian rhythms Suicidal Ideation in the setting of known psychiatric illness (PTSD, anxiety and depression) Psych consulted, recs appreciated Started by psych on quetiapine. Continue Continue ativan History of hepatic encephalopathy Will continue home lactulose at 20mg PO HS Monitor clinically ETOH Abuse advised on cessation Tobacco Abuse Advised on cessation nicotine patch DVT/GI ppx: Protonix/LVX Case seen, examined and discussed with attending physician, Dr. Bernadette Shepherd PGY1 <Kiera Hernandez - Last Filed: 09/04/18 14:16> Objective - Vital Signs/Intake and Output Vital Signs (last 24 hours): Temp Pulse Resp BP Pulse Ox 98.7 F 145 H 25 H 141/99 H 76 L 09/03/18 00:00 09/03/18 20:47 09/03/18 20:47 09/03/18 20:00 09/03/18 20:30 - Labs Labs: 09/03/18 05:40 09/03/18 07:00 PT 12.4 SECONDS (9.4-12.5) 08/31/18 11:30 INR 1.10 08/31/18 11:30 APTT 29.9 Seconds (26.9-38.3) 08/31/18 11:30 Attending/Attestation - Attestation I have personally seen and examined this patient.: Yes I have fully participated in the care of the patient.: Yes I have reviewed all pertinent clinical information, including history, physical exam and plan: Yes Notes (Text): 09/04/18 14:13 Attending note; Patient seen and examined with resident in ICU. Patient is currently off precedex drip. Vitals stable. Patient is more alert and awake. Patient currently lives in [place]. Patient is originally from [place]. Patient moves around a lot. Does not have a PMD here. Patient with a history of long-standing alcohol abuse and anxiety depression. Patient is a 47-year-old male with past medical history significant for alcohol abuse, alcohol withdrawal, liver cirrhosis, bipolar disorder, and tobacco abuse that presents to the emergency room with alcohol intoxication and withdrawal. 1. Alcohol withdrawal; currently off precedex drip. More alert and awake. Discontinue Haddad catheter. Started on diet. Complete alcohol cessation is strongly advised. on thiamine, folic acid, and multivitamin. Continue IV Ativan prn. 2. Alcohol abuse. Patient with a history of liver cirrhosis and encephalopathy. Needs complete alcohol cessation. 3. Anxiety/depression; psychiatric evaluation appreciated. Continue Ativan for now. 4. Tobacco abuse. Patient counseled at length on cessation. On NicoDerm patch. Monitor closely. Transfer out of ICU. We will get social media coordinator evaluation for discharge planning. Patient needs close outpatient PMD/psychiatrist follow-up. Patient needs alcohol rehabilitation. Prognosis is poor secondary to alcohol abuse and noncompliance with follow-up.
--- NOTE | 2018-09-03 15:53 | PN ---
DATE: 09/03/2018 SUBJECTIVE: The patient is a 47-year-old male, long and debilitating history of alcohol use disorder. The patient started to drink at the age of 8 and continued drinking up until recently. The patient had multiple rehabs and detoxes in the past, the longest sobriety is 1 year and it was in 2011. The patient also has strong antisocial personality traits, has history of selling drugs as well as arrest and the patient has history of being arrested driving under the influence. The patient was admitted into the ICU for severe alcohol withdrawal, delirium with hallucinations and agitation. At present moment, the patient is in ICU on Precedex drip. Dr. West saw the patient over the weekend, this telegraphic typewriter installer is taking over. The patient was seen yesterday, but the patient was deeply sedated. As per report, the patient had episodes of agitation and restlessness and required to have upper extremity soft restraint. The patient was seen today. The patient was more alert, was able to provide history. The patient reported that at present moment, he is very unhappy because he is in the hospital. The patient has no insight into his medical issues and wants to leave the hospital which is very dangerous at this point. The patient was able to tell about his history. At the age of 8, he started to drink, because his grandfather thought that this is funny. The patient continued drinking and had been arrested at the age of 18 and spent 2 years in the skilled nursing. The patient also has history of selling drugs, most recent rehab was about months ago. The patient relapsed on drinking right after release from rehab where he stayed for more than 60 days. The patient reported that at present moment, he wants to leave and he does not think that he needs to be in the hospital. This telegraphic typewriter installer tried to educate the patient about his medical condition and dangerousness of his medical symptoms, but the patient has poor insight. OBJECTIVE: VITAL SIGNS: The patient's vital signs seem to be under control, but blood pressure is elevated 146/101, pulse 65, respirations 17, oxygen saturation is 97. MEDICATIONS: Reviewed. The patient is on Precedex, folic acid, Lovenox, banana bag, lactulose, Ativan 1 mg IV push every 2 hours as needed as well as 2 mg IV push every 4 hours. Schedule multivitamins, Nicoderm, Zofran, Protonix, potassium chloride, Seroquel 12.5 mg twice a day as well as 25 mg at the nighttime. This telegraphic typewriter installer will increase the dose of Seroquel to 50 mg twice a day. The patient also is on thiamine 100 mg. LABORATORY DATA: Reviewed. Hemoglobin and hematocrit 11.8 and 37.4. Coagulation reviewed. Chemistry reviewed. AST and ALT elevated. Urinalysis reviewed. Toxicology, alcohol level was at 8.30 and 9 at the time of admission. Microbiology reviewed. MENTAL STATUS EXAM: The patient presented to be sleepy, easily arousable, annoyed and irritable, poor eye contact. Mood described, "who are you to ask me those questions?" Affect was irritable, angry. Thought process seems to be coherent and goal directed. Thought content, the patient denied visual, auditory, tactile hallucinations. Denied paranoid ideation, but the patient appears to be guarded and unsatisfied. Insight and judgment is very poor. Impulses are not predictable. IMPRESSION: As per history, the patient has bipolar disorder, but it is questionable most likely the patient has antisocial personality disorder. The patient also has severe alcohol withdrawal, delirium which seems to be improving. The patient has waxing and waning presentation and has episodes of confusion, agitation and trying to climb off the bed and pulling IV lines. In regards of bipolar disorder, the patient reported that he has psychiatrist in [place] and the patient reported that he was on Lamictal and Lexapro. PLAN: We will continue monitoring. Seroquel was increased. The patient is on Ativan. The patient is on Precedex drip. The patient is on multivitamins, thiamine and folic acid. As-needed medication need to be given. The patient would make statement such as "I want to kill myself, because I am in restraint right now, but the patient has antisocial personality traits and it could be related to that. Also, the patient could make such statement due to delirium and medical issues. Meanwhile, continue current management, continue current medication. We will call to the pharmacy and confirm medication. There is no urgency to resume Lexapro as well as Lamictal. Seroquel also could give mood stabilization. At the nighttime, the patient could have Remeron or trazodone. Thank you very much for letting me participate in care of your patient. Should you have any questions, give me a call back. Magalys Osei MD [facility]
[2018-09-03 21:50] VITALS: BP 141/99; PULSE 145; RESP 25; O2SAT 76
--- NOTE | 2018-09-04 01:54 | CP.PCM.PN ---
<Erik Berumen - Last Filed: 09/04/18 01:48> Subjective - Date & Time of Evaluation Date of Evaluation: 09/04/18 Time of Evaluation: 01:48 - Subjective Subjective: AMA I was called to assess patient for possible AMA. Patient requested to leave AMA because he was upset that he had been idle in the ICU for days. Patient and state that he could be cared for at home. Patient was AOx3 and denied any homocidal or suicidal ideology. The benefits of staying were explained to the patient including stabilizing his current condition, treating him and preventing alcohol withdrawal, and any other medical conditions that may arise. The risks of leaving were explained including further morbidity and possible mortality. Patient still elected to leave against medical advice. Objective - Vital Signs/Intake and Output Vital Signs (last 24 hours): Temp Pulse Resp BP Pulse Ox 98.7 F 145 H 25 H 141/99 H 76 L 09/03/18 00:00 09/03/18 20:47 09/03/18 20:47 09/03/18 20:00 09/03/18 20:30 Intake and Output: 09/03/18 09/04/18 18:59 06:59 Intake Total 1186 Output Total 1200 Balance -14 - Labs Labs: 09/03/18 05:40 09/03/18 07:00 PT 12.4 SECONDS (9.4-12.5) 08/31/18 11:30 INR 1.10 08/31/18 11:30 APTT 29.9 Seconds (26.9-38.3) 08/31/18 11:30 <Velma Hobbs - Last Filed: 09/04/18 02:51> Objective - Vital Signs/Intake and Output Vital Signs (last 24 hours): Temp Pulse Resp BP Pulse Ox 98.7 F 145 H 25 H 141/99 H 76 L 09/03/18 00:00 09/03/18 20:47 09/03/18 20:47 09/03/18 20:00 09/03/18 20:30 Intake and Output: 09/03/18 09/04/18 18:59 06:59 Intake Total 1186 Output Total 1200 Balance -14 - Labs Labs: 09/03/18 05:40 09/03/18 07:00 PT 12.4 SECONDS (9.4-12.5) 08/31/18 11:30 INR 1.10 08/31/18 11:30 APTT 29.9 Seconds (26.9-38.3) 08/31/18 11:30 Attending/Attestation - Attestation I have personally seen and examined this patient.: No I have fully participated in the care of the patient.: No I have reviewed all pertinent clinical information, including history, physical exam and plan: No
--- NOTE | 2018-09-04 07:48 | CP.PCM.DIS ---
<[facility] - Last Filed: 09/04/18 13:48> Provider - Provider Date of Admission: 08/31/18 10:18 Attending physician: Kiera Hernandez MD Primary care physician: MARCIANO PRIMARY CARE PROVIDER Consults: 08/31/18 15:29 Psychiatry Consult Routine Comment: Consulting Provider: Magalys Osei Consulting Physician: Magalys Osei Reason for Consult: SI 08/31/18 17:05 Nursing Referral for Wound Care Routine Comment: Physician Instructions: Reason For Exam: EVLAUATION 08/31/18 17:15 Patient Advocate Consultation ONCE Comment: Physician Instructions: Reason For Exam: EVALUATION 09/01/18 14:08 Critical Care Consult Routine Comment: Consulting Provider: Lm Ulloa Consulting Physician: Lm Ulloa Reason for Consult: ETOH withdrawal with DT Time Spent in preparation of Discharge (in minutes): 45 Diagnosis - Discharge Diagnosis (1) Alcohol intoxication Status: Acute (2) Alcohol withdrawal Status: Acute Hospital Course - Lab Results Lab Results: Micro Results 09/01/18 21:21 Naris MRSA Culture (Admit) - Final MRSA NOT DETECTED 09/01/18 21:21 Urine,Catheterized Urine Culture - Final No Growth (<1,000 CFU/ML) Most Recent Lab Values WBC 6.4 10^3/uL (4.5-11.0) 09/03/18 05:40 RBC 4.95 10^6/uL (3.5-6.1) 09/03/18 05:40 Hgb 11.8 g/dL (14.0-18.0) L 09/03/18 05:40 Hct 37.4 % (42.0-52.0) L 09/03/18 05:40 MCV 75.6 fl (80.0-105.0) L 09/03/18 05:40 MCH 23.8 pg (25.0-35.0) L 09/03/18 05:40 MCHC 31.6 g/dl (31.0-37.0) 09/03/18 05:40 RDW 16.9 % (11.5-14.5) H 09/03/18 05:40 Plt Count 143 10^3/uL (120.0-450.0) 09/03/18 05:40 MPV 9.0 fl (7.0-11.0) 09/03/18 05:40 Neut % (Auto) 68.6 % (50.0-68.0) H 09/03/18 05:40 Lymph % (Auto) 19.8 % (22.0-35.0) L 09/03/18 05:40 [place] % (Auto) 6.4 % (1.0-6.0) H 09/03/18 05:40 Eos % (Auto) 5.0 % (1.5-5.0) 09/03/18 05:40 Baso % (Auto) 0.2 % (0.0-3.0) 09/03/18 05:40 Lymph # (Auto) 1.3 (1.2-3.4) 09/03/18 05:40 [place] # (Auto) 0.4 (0.1-0.6) 09/03/18 05:40 Eos # (Auto) 0.3 (0.0-0.7) 09/03/18 05:40 Baso # (Auto) 0.01 K/mm3 (0.0-2.0) 09/03/18 05:40 Absolute Neuts (auto) 4.37 (1.4-6.5) 09/03/18 05:40 PT 12.4 SECONDS (9.4-12.5) 08/31/18 11:30 INR 1.10 08/31/18 11:30 APTT 29.9 Seconds (26.9-38.3) 08/31/18 11:30 Sodium 134 mmol/L (132-148) 09/03/18 07:00 Potassium 3.1 mmol/L (3.6-5.0) L 09/03/18 07:00 Chloride 99 mmol/L (98-107) 09/03/18 07:00 Carbon Dioxide 29 mmol/L (21-33) 09/03/18 07:00 Anion Gap 9 (10-20) L 09/03/18 07:00 BUN 6 mg/dL (7-21) L 09/03/18 07:00 Creatinine 0.5 mg/dl (0.8-1.5) L 09/03/18 07:00 Est GFR ( Amer) > 60 09/03/18 07:00 Est GFR (Non-Af Amer) > 60 09/03/18 07:00 Random Glucose 109 mg/dL (70-110) 09/03/18 07:00 Calcium 8.5 mg/dL (8.4-10.5) 09/03/18 07:00 Phosphorus 3.9 mg/dL (2.5-4.5) 09/03/18 07:00 Magnesium 1.6 mg/dL (1.7-2.2) L 09/03/18 07:00 Total Bilirubin 1.5 mg/dL (0.2-1.3) H 09/03/18 07:00 AST 147 U/L (17-59) H 09/03/18 07:00 ALT 46 U/L (7-56) 09/03/18 07:00 Alkaline Phosphatase 101 U/L (38-126) 09/03/18 07:00 Ammonia 12 umol/L (9-33) 09/01/18 12:43 Total Protein 6.2 g/dL (5.8-8.3) 09/03/18 07:00 Albumin 3.7 g/dL (3.0-4.8) 09/03/18 07:00 Globulin 2.5 gm/dL 09/03/18 07:00 Albumin/Globulin Ratio 1.5 (1.1-1.8) 09/03/18 07:00 Urine Color Yellow (YELLOW) 09/01/18 21:21 Urine Appearance Clear (CLEAR) 09/01/18 21:21 Urine pH 7.5 (4.7-8.0) 09/01/18 21:21 Ur Specific [place] 1.020 (1.005-1.035) 09/01/18 21:21 Urine Protein Negative mg/dL (<30 mg/dL) 09/01/18 21:21 Urine Glucose (UA) Negative mg/dL (NEGATIVE) 09/01/18 21:21 Urine Ketones 40 mg/dL (NEGATIVE) H 09/01/18 21:21 Urine Blood Moderate (NEGATIVE) H 09/01/18 21:21 Urine Nitrate Negative (NEGATIVE) 09/01/18 21:21 Urine Bilirubin Negative (NEGATIVE) 09/01/18 21:21 Urine Urobilinogen 4.0 E.U./dL (<1 E.U./dL) H 09/01/18 21:21 Ur Leukocyte Esterase Negative Diane/uL (NEGATIVE) 09/01/18 21:21 Urine RBC 0 - 2 /hpf (0-2) 09/01/18 21:21 Urine WBC None /hpf (0-6) 09/01/18 21:21 Ur Epithelial Cells None /hpf (0-5) 09/01/18 21:21 Urine Opiates Screen Negative (NEGATIVE) 09/01/18 21:21 Urine Methadone Screen Negative (NEGATIVE) 09/01/18 21:21 Ur Barbiturates Screen Negative (NEGATIVE) 09/01/18 21:21 Ur Phencyclidine Scrn Negative (NEGATIVE) 09/01/18 21:21 Ur Amphetamines Screen Negative (NEGATIVE) 09/01/18 21:21 U Benzodiazepines Scrn Negative (NEGATIVE) 09/01/18 21:21 U Oth Cocaine Metabols Negative (NEGATIVE) 09/01/18 21:21 U Cannabinoids Screen Negative (NEGATIVE) 09/01/18 21:21 Alcohol, Quantitative 339 mg/dL (0-10) H* 08/31/18 00:15 - Hospital Course Hospital Course: Upon Admission: 47 year old male with pertinent medical history of alcohol abuse and alcohol withdrawal presents to ED with symptoms of alcohol intoxication. Patient states that he relapsed in May 2018 after a year hiatus from drinking. From May 2018 to last Sunday, Aug 23, patient was sober, then started drinking heavily between then and now (4 bottles of liquor). Patient is also giving some history of suicidal ideation. Before our interview, ED physician endorsed an episode of convulsions but not seizures Hospital Course: PT was admitted for ETOH withdrawal. He was placed in CIWA protocol, with scheduled and prn ativan, banana bag ordered. Throughout hospital coure patient had code avalos, was agitated, actively withdrawing, needing multiple doses of ativan. ICU was consulted. Pt was subsequently transferred to ICU for initiation of titratable precedex drip. Pt was eventually clinically improving and began to tolerate po medications. Psychiatry was consulted and evaluated patient and started patient on seroquel. Pt was subsequently transferred to remote telemetry On 09/04/18, Patient requested to leave AMA because he was upset that he had been idle in the ICU for days. Patient and state that he could be cared for at home. Patient was AOx3 and denied any homocidal or suicidal ideology. The benefits of staying were explained to the patient including stabilizing his current condition, treating him and preventing alcohol withdrawal, and any other medical conditions that may arise. The risks of leaving were explained including further morbidity and possible mortality. Patient still elected to leave against medical advice. Discharge Plan - Follow Up Plan Condition: GUARDED Disposition: AGAINST MEDICAL ADVICE Referrals: PCP,MARCIANO [Primary Care Provider] - <Kiera Hernandez - Last Filed: 09/04/18 14:18> Provider - Provider Date of Admission: 08/31/18 10:18 Attending physician: Kiera Hernandez MD Primary care physician: MARCIANO PRIMARY CARE PROVIDER Consults: 08/31/18 15:29 Psychiatry Consult Routine Comment: Consulting Provider: Magalys Osei Consulting Physician: Magalys Osei Reason for Consult: SI 08/31/18 17:05 Nursing Referral for Wound Care Routine Comment: Physician Instructions: Reason For Exam: EVLAUATION 08/31/18 17:15 Patient Advocate Consultation ONCE Comment: Physician Instructions: Reason For Exam: EVALUATION 09/01/18 14:08 Critical Care Consult Routine Comment: Consulting Provider: Lm Ulloa Consulting Physician: Lm Ulloa Reason for Consult: ETOH withdrawal with DT Hospital Course - Lab Results Lab Results: Micro Results 09/01/18 21:21 Naris MRSA Culture (Admit) - Final MRSA NOT DETECTED 09/01/18 21:21 Urine,Catheterized Urine Culture - Final No Growth (<1,000 CFU/ML) Most Recent Lab Values WBC 6.4 10^3/uL (4.5-11.0) 09/03/18 05:40 RBC 4.95 10^6/uL (3.5-6.1) 09/03/18 05:40 Hgb 11.8 g/dL (14.0-18.0) L 09/03/18 05:40 Hct 37.4 % (42.0-52.0) L 09/03/18 05:40 MCV 75.6 fl (80.0-105.0) L 09/03/18 05:40 MCH 23.8 pg (25.0-35.0) L 09/03/18 05:40 MCHC 31.6 g/dl (31.0-37.0) 09/03/18 05:40 RDW 16.9 % (11.5-14.5) H 09/03/18 05:40 Plt Count 143 10^3/uL (120.0-450.0) 09/03/18 05:40 MPV 9.0 fl (7.0-11.0) 09/03/18 05:40 Neut % (Auto) 68.6 % (50.0-68.0) H 09/03/18 05:40 Lymph % (Auto) 19.8 % (22.0-35.0) L 09/03/18 05:40 [place] % (Auto) 6.4 % (1.0-6.0) H 09/03/18 05:40 Eos % (Auto) 5.0 % (1.5-5.0) 09/03/18 05:40 Baso % (Auto) 0.2 % (0.0-3.0) 09/03/18 05:40 Lymph # (Auto) 1.3 (1.2-3.4) 09/03/18 05:40 [place] # (Auto) 0.4 (0.1-0.6) 09/03/18 05:40 Eos # (Auto) 0.3 (0.0-0.7) 09/03/18 05:40 Baso # (Auto) 0.01 K/mm3 (0.0-2.0) 09/03/18 05:40 Absolute Neuts (auto) 4.37 (1.4-6.5) 09/03/18 05:40 PT 12.4 SECONDS (9.4-12.5) 08/31/18 11:30 INR 1.10 08/31/18 11:30 APTT 29.9 Seconds (26.9-38.3) 08/31/18 11:30 Sodium 134 mmol/L (132-148) 09/03/18 07:00 Potassium 3.1 mmol/L (3.6-5.0) L 09/03/18 07:00 Chloride 99 mmol/L (98-107) 09/03/18 07:00 Carbon Dioxide 29 mmol/L (21-33) 09/03/18 07:00 Anion Gap 9 (10-20) L 09/03/18 07:00 BUN 6 mg/dL (7-21) L 09/03/18 07:00 Creatinine 0.5 mg/dl (0.8-1.5) L 09/03/18 07:00 Est GFR ( Amer) > 60 09/03/18 07:00 Est GFR (Non-Af Amer) > 60 09/03/18 07:00 Random Glucose 109 mg/dL (70-110) 09/03/18 07:00 Calcium 8.5 mg/dL (8.4-10.5) 09/03/18 07:00 Phosphorus 3.9 mg/dL (2.5-4.5) 09/03/18 07:00 Magnesium 1.6 mg/dL (1.7-2.2) L 09/03/18 07:00 Total Bilirubin 1.5 mg/dL (0.2-1.3) H 09/03/18 07:00 AST 147 U/L (17-59) H 09/03/18 07:00 ALT 46 U/L (7-56) 09/03/18 07:00 Alkaline Phosphatase 101 U/L (38-126) 09/03/18 07:00 Ammonia 12 umol/L (9-33) 09/01/18 12:43 Total Protein 6.2 g/dL (5.8-8.3) 09/03/18 07:00 Albumin 3.7 g/dL (3.0-4.8) 09/03/18 07:00 Globulin 2.5 gm/dL 09/03/18 07:00 Albumin/Globulin Ratio 1.5 (1.1-1.8) 09/03/18 07:00 Urine Color Yellow (YELLOW) 09/01/18 21:21 Urine Appearance Clear (CLEAR) 09/01/18 21:21 Urine pH 7.5 (4.7-8.0) 09/01/18 21:21 Ur Specific [place] 1.020 (1.005-1.035) 09/01/18 21:21 Urine Protein Negative mg/dL (<30 mg/dL) 09/01/18 21:21 Urine Glucose (UA) Negative mg/dL (NEGATIVE) 09/01/18 21:21 Urine Ketones 40 mg/dL (NEGATIVE) H 09/01/18 21:21 Urine Blood Moderate (NEGATIVE) H 09/01/18 21:21 Urine Nitrate Negative (NEGATIVE) 09/01/18 21:21 Urine Bilirubin Negative (NEGATIVE) 09/01/18 21:21 Urine Urobilinogen 4.0 E.U./dL (<1 E.U./dL) H 09/01/18 21:21 Ur Leukocyte Esterase Negative Diane/uL (NEGATIVE) 09/01/18 21:21 Urine RBC 0 - 2 /hpf (0-2) 09/01/18 21:21 Urine WBC None /hpf (0-6) 09/01/18 21:21 Ur Epithelial Cells None /hpf (0-5) 09/01/18 21:21 Urine Opiates Screen Negative (NEGATIVE) 09/01/18 21:21 Urine Methadone Screen Negative (NEGATIVE) 09/01/18 21:21 Ur Barbiturates Screen Negative (NEGATIVE) 09/01/18 21:21 Ur Phencyclidine Scrn Negative (NEGATIVE) 09/01/18 21:21 Ur Amphetamines Screen Negative (NEGATIVE) 09/01/18 21:21 U Benzodiazepines Scrn Negative (NEGATIVE) 09/01/18 21:21 U Oth Cocaine Metabols Negative (NEGATIVE) 09/01/18 21:21 U Cannabinoids Screen Negative (NEGATIVE) 09/01/18 21:21 Alcohol, Quantitative 339 mg/dL (0-10) H* 08/31/18 00:15 Attending/Attestation - Attestation I have personally seen and examined this patient.: Yes I have fully participated in the care of the patient.: Yes I have reviewed all pertinent clinical information, including history, physical exam and plan: Yes Notes (Text): 09/04/18 14:16 Discharge summary for 09/03/18. Attending note; Patient was seen and examined with residents in the morning. Patient is a 47-year-old male with a history of chronic alcohol abuse, cirrhosis, active smoking, anxiety depression is admitted for acute alcohol intoxication. Patient was treated with IV Precedex. Patient was off Precedex since this morning. Patient was more alert and awake. Tolerating diet. Ambulated in ICU. Patient signed AGAINST MEDICAL ADVICE and went home with family.
--- NOTE | 2018-09-04 10:53 | CP.PCM.PCO ---
Physician Communication Note - Physician Communication Note Physician Communication Note: pt was d/c AMA over night
== END 2018-09-03 21:02 | disposition left against medical advice (07) | DRG 770 ==
LOC: ED 21:05 → ERH 08-31 10:18 → 2RNO 08-31 17:40 → ICU 09-01 15:20
PROVIDERS: ADMIT Hospitalist; ATTEND Internal Medicine
DX: F10.231 Alcohol dependence with withdrawal delirium (principal); R45.851 Suicidal ideations; K74.60 Unspecified cirrhosis of liver; R56.9 Unspecified convulsions; Z78.1 Physical restraint status; F31.9 Bipolar disorder, unspecified; F10.229 Alcohol dependence with intoxication, unspecified; Z83.3 Family history of diabetes mellitus; F43.10 Post-traumatic stress disorder, unspecified; F60.2 Antisocial personality disorder; Y90.8 Blood alcohol level of 240 mg/100 ml or more; Z72.0 Tobacco use; Z90.49 Acquired absence of other specified parts of digestive tract; Z91.19 Patient's noncompliance with other medical treatment and regimen; E86.0 Dehydration; F41.8 Other specified anxiety disorders

== ENCOUNTER 2018-09-04 15:35 | Inpatient (IN) | payer OTHER ==
[2018-09-04] MEDS ORDERED: Sodium Chloride 0.9% 1,000 ML IV STA ×2 (16:04→17:28)
[2018-09-04 16:39] LABS: BASO # 0.02 K/mm3 (0.0-2.0); BASO % 0.2 % (0.0-3.0); EOS % 0.2 % (1.5-5.0); HEMOGLOBIN 12.9 g/dL (14.0-18.0); LYMPH # 1.6 (1.2-3.4); LYMPH % 19.3 % (22.0-35.0); MEAN CORPUSCULAR HEMOGLOBIN 24.6 pg (25.0-35.0); MEAN CORPUSCULAR HGB CONC 32.4 g/dl (31.0-37.0); MEAN PLATELET VOLUME 8.9 fl (7.0-11.0); MONO # 0.4 (0.1-0.6); MONO % 4.7 % (1.0-6.0); RBC 5.24 10^6/uL (3.5-6.1); RED CELL DISTRIBUTION WIDTH 18.8 % (11.5-14.5); WHITE BLOOD COUNT 8.4 10^3/uL (4.5-11.0)
[2018-09-04 16:43] LABS: INR 1.08; PARTIAL THROMBOPLASTIN TIME 30.5 Seconds (26.9-38.3)
[2018-09-04 17:02] LABS: ACETAMINOPHEN < 10.0 ug/ml (10.0-20.0); ALB/GLOB RATIO 1.6 (1.1-1.8); ALBUMIN 4.3 g/dL (3.0-4.8); ALT/SGPT 70 U/L (7-56); AST/SGOT 235 U/L (17-59); BLOOD UREA NITROGEN 12 mg/dL (7-21); CALCIUM 8.7 mg/dL (8.4-10.5); GFR NON-AFRICAN AMERICAN > 60; LIPASE 99 U/L (23-300); SALICYLATE < 1 mg/dL (2.0-20.0)
[2018-09-04 17:12] LABS: TROPONIN I < 0.01 ng/mL
[2018-09-04 17:18] LABS: PH,URINE 5.5 (4.7-8.0); URINE BILIRUBIN NEGATIVE (NEGATIVE); URINE BLOOD NEGATIVE (NEGATIVE); URINE GLUCOSE (UA) NEGATIVE (NEGATIVE); URINE LEUKOCYTE ESTERASE NEGATIVE Leu/uL (NEGATIVE); URINE PROTEIN TRACE mg/dL (<30 mg/dL)
[2018-09-04 17:23] LABS: URINE COLOR YELLOW (YELLOW)
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
[2018-09-04 17:35] LABS: CK-MB 3.9 ng/mL (0.0-3.6)
[2018-09-04 17:37] LABS: URINE APPEARANCE SL CLOUDY (CLEAR); URINE BACTERIA MANY /hpf
[2018-09-04 17:49] LABS: BARBITURATES, UR NEGATIVE (NEGATIVE); BENZODIAZEPINES, UR NEGATIVE (NEGATIVE); OPIATES, UR NEGATIVE (NEGATIVE); PHENCYCLIDINE, UR NEGATIVE (NEGATIVE)
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
[2018-09-04] MEDS ORDERED: Folic Acid 1 MG, Thiamine 100 MG, Multivitamin (MVI) 10 ML in Dextrose 5% In Water 1,00... IV SCH ×2 (22:00)
--- NOTE | 2018-09-05 00:50 | CARD ---
APPROVED REPORT Date of service: 09/04/2018 EKG Measurement Heart [id number] <Conclusion> Sinus tachycardia Minimal voltage criteria for LVH, may be normal variant Borderline ECG
[2018-09-05 01:04] VITALS: BMI 136.6
[2018-09-05 01:39] VITALS: O2SAT 98
[2018-09-05] MEDS ORDERED: Pantoprazole 40 mg EC Tab PO SCH (06:00)
[2018-09-05 06:26] VITALS: RESP 20
[2018-09-05 07:15] LABS: TROPONIN I < 0.01 ng/mL
[2018-09-05 07:16] LABS: ALB/GLOB RATIO 1.5 (1.1-1.8); ALBUMIN 3.6 g/dL (3.0-4.8); ALT/SGPT 60 U/L (7-56); AST/SGOT 166 U/L (17-59); BLOOD UREA NITROGEN 11 mg/dL (7-21); CALCIUM 8.4 mg/dL (8.4-10.5); GFR NON-AFRICAN AMERICAN > 60
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
[2018-09-05] MEDS ORDERED: Potassium Chloride 20 mEq ER Tab PO STA ×2 (08:16→15:16)
[2018-09-05] MEDS ORDERED: Magnesium Sulfate 2 gm/50 ml 2 GM/50 ML BAG IVPB ONE (08:16)
--- NOTE | 2018-09-05 08:27 | CT ---
Date of service: 09/04/2018 PROCEDURE: CT Chest with contrast (Pulmonary Angiogram) HISTORY: cp elevated dimer COMPARISON: None available. TECHNIQUE: Axial computed tomography images were obtained of the chest in the pulmonary arterial phase of enhancement. Coronal and sagittal reformatted images were created and reviewed. Intravenous contrast dose: 143 cc of Omni 350 Radiation dose: Total exam DLP = 471.52 mGy-cm. This CT exam was performed using one or more of the following dose reduction techniques: Automated exposure control, adjustment of the mA and/or kV according to patient size, and/or use of iterative reconstruction technique. FINDINGS: PULMONARY ARTERIES: Unremarkable. No pulmonary embolism. AORTA: No acute findings. No thoracic aortic aneurysm. No aortic atherosclerotic calcification or mural plaque present. LUNGS: Unremarkable. No nodule, mass or pulmonary consolidation. PLEURAL SPACES: Unremarkable. No effusion or pneumothorax. HEART: Unremarkable. No cardiomegaly. No significant pericardial effusion. LYMPH NODES: Mild bilateral hilar adenopathy BONES, CHEST WALL: Unremarkable. No fracture or destructive lesion OTHER FINDINGS: There is fatty infiltration of the liver. The gallbladder has been removed. Suture lines are seen in the proximal stomach. The report concurs with the preliminary [facility] report IMPRESSION: Unremarkable CT pulmonary angiogram. No pulmonary embolus.
[2018-09-05 08:44] LABS: HEMOGLOBIN 11.2 g/dL (14.0-18.0); MEAN CELL VOLUME 76.4 fl (80.0-105.0); MEAN CORPUSCULAR HGB CONC 31.5 g/dl (31.0-37.0); MEAN PLATELET VOLUME 8.8 fl (7.0-11.0); RBC 4.66 10^6/uL (3.5-6.1); RED CELL DISTRIBUTION WIDTH 19.1 % (11.5-14.5); WHITE BLOOD COUNT 6.8 10^3/uL (4.5-11.0)
--- NOTE | 2018-09-05 08:54 | RAD ---
Date of service: 09/04/2018 HISTORY: Chest pain COMPARISON: No prior. FINDINGS: LUNGS: The lungs are well inflated and clear. PLEURA: No pleural effusions or pneumothorax. CARDIOVASCULAR: The heart is normal in size. No aortic atherosclerotic calcifications present. OSSEOUS STRUCTURES: Within normal limits for the patient's age. VISUALIZED UPPER ABDOMEN: Normal. OTHER FINDINGS: None. IMPRESSION: No active pulmonary disease.
[2018-09-05] MEDS ORDERED: Multivitamin With Minerals Tab PO SCH (10:00)
[2018-09-05] MEDS ORDERED: Sodium Chloride 0.9% 1,000 ML IV SCH ×2 (10:00→15:16)
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
[2018-09-05 12:44] VITALS: TEMP 98.8
[2018-09-05 17:45] VITALS: BP 140/88
--- NOTE | 2018-09-05 18:55 | CARD ---
APPROVED REPORT Date of service: 09/05/2018 EKG Measurement Heart [id number] <Conclusion> Normal sinus rhythm Moderate voltage criteria for LVH, may be normal variant Borderline ECG
[2018-09-05 18:57] VITALS: PULSE 99
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
--- NOTE | 2018-09-06 16:03 | CP.PCM.PCO ---
Physician Communication Note - Physician Communication Note Physician Communication Note: erica purdy
== END 2018-09-05 19:30 | disposition left against medical advice (07) | DRG 351 ==
LOC: ED 15:35 → OBSVTOIN 21:00 → ERH 21:00 → 2RSO 23:16
PROVIDERS: ADMIT Internal Medicine; ATTEND Internal Medicine
DX: M62.82 Rhabdomyolysis (principal); K74.60 Unspecified cirrhosis of liver; F10.239 Alcohol dependence with withdrawal, unspecified; F10.229 Alcohol dependence with intoxication, unspecified; F31.81 Bipolar II disorder; F60.2 Antisocial personality disorder; Y90.7 Blood alcohol level of 200-239 mg/100 ml; Z83.3 Family history of diabetes mellitus; Z72.0 Tobacco use; Z91.19 Patient's noncompliance with other medical treatment and regimen

== ENCOUNTER 2018-09-27 12:52 | Emergency (ER) | payer OTHER ==
[2018-09-27 12:57] VITALS: BMI 30.1
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
[2018-09-27 14:08] LABS: BASO # 0.03 {null, K/mm3} (0.0-2.0); BASO % 0.7 % (0.0-3.0); EOS % 0.7 % (1.5-5.0); HEMOGLOBIN 12.5 g/dL (14.0-18.0); LYMPH # 1.6 (1.2-3.4); LYMPH % 36.2 % (22.0-35.0); MEAN CELL VOLUME 80.9 fl (80.0-105.0); MEAN CORPUSCULAR HEMOGLOBIN 25.2 pg (25.0-35.0); MEAN CORPUSCULAR HGB CONC 31.1 g/dl (31.0-37.0); MEAN PLATELET VOLUME 8.7 fl (7.0-11.0); MONO # 0.2 (0.1-0.6); MONO % 4.8 % (1.0-6.0); RBC 4.97 {null, 10^6/uL} (3.5-6.1); RED CELL DISTRIBUTION WIDTH 21.6 % (11.5-14.5); WHITE BLOOD COUNT 4.4 {null, 10^3/uL} (4.5-11.0)
[2018-09-27 14:19] LABS: ALB/GLOB RATIO 1.9 (1.1-1.8); ALBUMIN 4.1 g/dL (3.0-4.8); ALT/SGPT 55 U/L (7-56); AST/SGOT 79 U/L (17-59); BLOOD UREA NITROGEN 16 mg/dL (7-21); CALCIUM 8.7 mg/dL (8.4-10.5); GFR NON-AFRICAN AMERICAN > 60; LIPASE 99 U/L (23-300)
[2018-09-27 14:22] LABS: INR 1.11; PARTIAL THROMBOPLASTIN TIME 29.7 Seconds (26.9-38.3); PROTHROMBIN TIME 12.5 SECONDS (9.4-12.5)
[2018-09-27 14:25] LABS: TROPONIN I < 0.01 ng/mL
[2018-09-27] MEDS ORDERED: Iohexol 350 MG/100 ML VIAL ONE (15:26)
--- NOTE | 2018-09-27 16:12 | CARD ---
APPROVED REPORT Date of service: 09/27/2018 EKG Measurement Heart [id number] <Conclusion> Poor data quality, interpretation may be adversely affected Sinus tachycardia Minimal voltage criteria for LVH, may be normal variant Borderline ECG
--- NOTE | 2018-09-27 16:23 | CT ---
Date of service: 09/27/2018 PROCEDURE: CT Chest with contrast (Pulmonary Angiogram) HISTORY: pulmonary embolism COMPARISON: None available. TECHNIQUE: Axial computed tomography images were obtained of the chest in the pulmonary arterial phase of enhancement. Coronal and sagittal reformatted images were created and reviewed. Intravenous contrast dose: 100 cc of Omni 350 Radiation dose: Total exam DLP = 422.81 mGy-cm. This CT exam was performed using one or more of the following dose reduction techniques: Automated exposure control, adjustment of the mA and/or kV according to patient size, and/or use of iterative reconstruction technique. FINDINGS: PULMONARY ARTERIES: Unremarkable. No pulmonary embolism. AORTA: No acute findings. No thoracic aortic aneurysm. No aortic atherosclerotic calcification or mural plaque present. LUNGS: Unremarkable. No nodule, mass or pulmonary consolidation. PLEURAL SPACES: Unremarkable. No effusion or pneumothorax. HEART: Unremarkable. No cardiomegaly. No significant pericardial effusion. LYMPH NODES: No lymphadenopathy. BONES, CHEST WALL: Unremarkable. No fracture or destructive lesion OTHER FINDINGS: Unremarkable. IMPRESSION: Unremarkable CT pulmonary angiogram. No pulmonary embolus.
[2018-09-27 16:38] VITALS: BP 143/91; PULSE 95; RESP 16; TEMP 98.3; O2SAT 96
== END 2018-09-27 16:40 ==
LOC: ED 12:52
DX: R07.89 Other chest pain (principal); R09.1 Pleurisy; K85.90 Acute pancreatitis without necrosis or infection, unspecified
CPT/HCPCS: 71275; 80053; 80320; 83690; 83735; 84484; 85025; 85378; 85610; 85730; 93005; 96374; 99284; J1885; Q9967

== ENCOUNTER 2018-12-05 10:06 | Inpatient (IN) | payer MEDICAID, OTHER ==
[2018-12-05] MEDS ORDERED: Multivitamin (MVI) 10 ML, Thiamine 100 MG, Folic Acid 1 MG in Sodium Chloride 0.9% 1,00... IV ONE (10:28)
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
[2018-12-05 11:25] LABS: BASO # 0.03 K/mm3 (0.0-2.0); BASO % 0.8 % (0.0-3.0); EOS % 0.3 % (1.5-5.0); HEMOGLOBIN 11.7 g/dL (14.0-18.0); LYMPH # 0.9 (1.2-3.4); LYMPH % 23.3 % (22.0-35.0); MEAN CELL VOLUME 82.3 fl (80.0-105.0); MEAN CORPUSCULAR HEMOGLOBIN 27.3 pg (25.0-35.0); MEAN CORPUSCULAR HGB CONC 33.1 g/dl (31.0-37.0); MEAN PLATELET VOLUME 9.1 fl (7.0-11.0); MONO # 0.4 (0.1-0.6); MONO % 10.7 % (1.0-6.0); RBC 4.29 10^6/uL (3.5-6.1); RED CELL DISTRIBUTION WIDTH 18.9 % (11.5-14.5); WHITE BLOOD COUNT 3.7 10^3/uL (4.5-11.0)
[2018-12-05 11:34] LABS: INR 1.04; PARTIAL THROMBOPLASTIN TIME 34.4 Seconds (26.9-38.3); PROTHROMBIN TIME 11.7 SECONDS (9.4-12.5)
[2018-12-05 11:36] LABS: ALB/GLOB RATIO 1.6 (1.1-1.8); ALT/SGPT 124 U/L (7-56); AST/SGOT 307 U/L (17-59); BLOOD UREA NITROGEN 8 mg/dL (7-21); CALCIUM 7.8 mg/dL (8.4-10.5); GFR NON-AFRICAN AMERICAN > 60
[2018-12-05] MEDS ORDERED: Magnesium Sulfate 2 gm/50 ml 2 GM/50 ML BAG IVPB ONE (11:45)
[2018-12-05] MEDS ORDERED: Potassium Chloride 20 mEq ER Tab PO STA (12:02)
--- NOTE | 2018-12-05 12:21 | CARD ---
APPROVED REPORT Date of service: 12/05/2018 EKG Measurement Heart [id number] <Conclusion> Accelerated Junctional rhythm Moderate voltage criteria for LVH, may be normal variant Prolonged QT Abnormal ECG
[2018-12-05 12:28] LABS: BARBITURATES, UR NEGATIVE (NEGATIVE); BENZODIAZEPINES, UR NEGATIVE (NEGATIVE); OPIATES, UR NEGATIVE (NEGATIVE); PHENCYCLIDINE, UR NEGATIVE (NEGATIVE)
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
[2018-12-05 18:42] VITALS: BMI 28.1
[2018-12-06 01:05] VITALS: O2SAT 96
--- NOTE | 2018-12-06 06:55 | CP.PCM.PN ---
<Bg Watson - Last Filed: 12/06/18 12:23> Subjective - Date & Time of Evaluation Date of Evaluation: 12/06/18 Time of Evaluation: 06:55 - Subjective Subjective: Bg Watson DO PGY1 Hospitalist Progress Note for Dr Bauer Patient seen and examined at bedside. He admits to nausea, no vomiting, no bowel movement. He received 3 doses of ativan 2 mg during the night for anxiety and tremors. He denies CP, palpitations, coughing/vomiting blood, no visual/auditory disturbances, sweating Objective - Vital Signs/Intake and Output Vital Signs (last 24 hours): Temp Pulse Resp BP Pulse Ox 98.2 F 95 H 20 134/88 96 12/06/18 06:00 12/06/18 06:00 12/06/18 06:00 12/06/18 06:00 12/06/18 06:00 Intake and Output: 12/05/18 12/06/18 18:59 06:59 Intake Total 420 Balance 420 - Medications Medications: Current Medications Folic Acid (Folic Acid) 1 mg PO DAILY ESTEVAN Lorazepam (Ativan) 2 mg IVP Q4H [facility]; Protocol Last Admin: 12/06/18 05:44 Dose: 2 mg Lorazepam (Ativan) 2 mg IVP Q2H PRN; Protocol PRN Reason: Symptoms of alcohol withdrawl Multivitamins (Thera Tab) 1 tab PO 0800 ESTEVAN Thiamine HCl (Vitamin B1 Tab) 100 mg PO DAILY [facility] - Labs Labs: 12/05/18 10:46 12/05/18 10:46 PT 11.7 SECONDS (9.4-12.5) 12/05/18 10:46 INR 1.04 12/05/18 10:46 APTT 34.4 Seconds (26.9-38.3) 12/05/18 10:46 - Additional Findings Additional findings: - Constitutional Appears: well, No Acute Distress, - Head Exam Head Exam: ATRAUMATIC, NORMAL INSPECTION, NORMOCEPHALIC. tongue tremors - Eye Exam Eye Exam: EOMI, Normal appearance, PERRL Pupil Exam: NORMAL ACCOMODATION, PERRL - ENT Exam ENT Exam: Mucous Membranes Moist, Normal Exam - Neck Exam Neck Exam: Full ROM, Normal Inspection. absent: Lymphadenopathy - Respiratory Exam Respiratory Exam: Clear to Ausculation Bilateral, NORMAL BREATHING PATTERN - Cardiovascular Exam Cardiovascular Exam: REGULAR RHYTHM, +S1, +S2. absent: RRR, Rubs, Murmur - GI/Abdominal Exam GI & Abdominal Exam: Soft, No Tenderness , Normal Bowel Sounds. absent: Mass, Pulsatile Mass, Rebound. healed mid abdominal scar - Extremities Exam Extremities Exam: Full ROM, Normal Capillary Refill, Normal Inspection. absent: Joint Swelling, Pedal Edema. b/l upper limb tremors - Back Exam Back Exam: NORMAL INSPECTION - Neurological Exam Neuro motor strength exam: AAO x3. CN2-12 grossly intact - Skin Skin Exam: Dry, Intact, Normal Color, Warm Assessment and Plan - Assessment and Plan (Free Text) Assessment: 47 y/o male with PMH of alcohol abuse/withdrawal, bipolar disorder, PTSD, alcoholic liver cirrhosis presents to the ED from home for alcohol detox/ now in alcohol withdrawal Plan: Alcohol withdrawal: -patient has tongue/hand tremors -CIWA 8 this am -BAL on admission 338 -started folic acid /thiamine, MVI daily -continue ativan 2q4 estevan and 2q2 prn for alcohol withdrawal sx -aspiration/fall/seizure precautions -AST/ALT/ALP 307/124/193 -EKG: sinus tachy @ 100. No ST/T wave changes -hypomagnesemia/hypokalemia in the setting of alcohol abuse. Lytes repleted. monitor in am -continue protonix po -continue zofran prn -UDS positive for alcohol of 338, no other drugs -patient counseled on alcohol cessation h/o PSTD/ bipolar disorder: -meds verified with pharmacy, last picked up Jul 2018 -hold lamotrigene, lexapro, prazosin (not recently taken) PPX: DVT: SCD GI: protonix HHD Dispo: continue to treat alcohol withdrawal symptoms Case reviewed and plan discussed with attending Dr Juancarlos Watson, DO DRAFTED NOT FINALIZED <Stephanie Bauer R - Last Filed: 12/07/18 13:58> Objective - Vital Signs/Intake and Output Vital Signs (last 24 hours): Temp Pulse Resp BP Pulse Ox 99.0 F 116 H 21 120/80 96 12/06/18 12:00 12/06/18 14:00 12/06/18 12:00 12/06/18 12:00 12/06/18 06:00 - Labs Labs: 12/06/18 07:00 12/06/18 11:30 PT 11.7 SECONDS (9.4-12.5) 12/05/18 10:46 INR 1.04 12/05/18 10:46 APTT 34.4 Seconds (26.9-38.3) 12/05/18 10:46 Attending/Attestation - Attestation I have personally seen and examined this patient.: Yes I have fully participated in the care of the patient.: Yes I have reviewed all pertinent clinical information, including history, physical exam and plan: Yes Notes (Text): Patient seen and examined by me with resident at approximately 9:40AM on 12/06/18. Case including HPI, physical exam, and assessment and plan discussed with resident. Agree with above with following additions/corrections. Patient is a 47-year-old male with past medical history significant for alcohol abuse, alcohol withdrawal, delirium tremens, liver cirrhosis, bipolar disorder, and tobacco abuse that presents to the emergency room with alcohol intoxication and requesting detox. Patient states he feels a little better today. Still with some nausea. States he feels more tremulous today. No abdominal pain. No headaches or dizziness. No fevers or chills. No dysuria. No chest pain or shortness of breath. Physical exam: General: Awake and alert lying in bed in no acute distress. HEENT: Normocephalic, atraumatic. Extraocular muscles intact. Pupils equal and reactive, no scleral icterus. Oropharynx is pink and moist. No pharyngeal erythema or exudate appreciated. Positive tongue fasiculations. Neck is supple. Cardiovascular: Regular rhythm. Normal S1 and S2. No murmurs, rubs, or gallops appreciated Pulmonary: Normal respiratory effort. No rhonci, rales, or wheezing appreciated. Gastrointestinal: Soft, nondistended. Nontender. Positive bowel sounds all 4 quadrants. No guarding. Musculoskeletal: Moves all extremities. No calf tenderness. No edema appreciated. Central nervous system: AAO x3. CN2-12 grossly intact. Positive tremors bilateral hands and arms. Dermatologic: Skin warm and dry. Positive ecchymosis left shoulder, abdomen, and chest Assessment and plan: Patient is a 47-year-old male with past medical history significant for alcohol abuse, alcohol withdrawal, delirium tremens, liver cirrhosis, bipolar disorder, and tobacco abuse that presents to the emergency room with alcohol intoxication and requesting detox. 1. Alcohol intoxication/withdrawal. Alcohol level on admission 338. Continue CIWA protocol. Continue Ativan 2 mg IV every 4 scheduled and 2 mg IV every 2 w hen necessary secondary to very high risk for delirium tremens. S/P banana bag. Continue thiamine, folic acid, and multivitamin. Continue seizure, fall, and aspiration precautions. Patient counseled at length on alcohol cessation. 2. Hypomagnesemia and hypokalemia. Both repleted. Follow up repeat labs. 3. Transaminitis. Secondary to alcohol abuse. Continue to monitor trend. 4. Pancytopenia. Secondary to alcohol abuse and history of liver cirrhosis. No signs of acute bleeding. Continue to monitor for now. Case was discussed in detail with the patient regarding current diagnosis, study results, and treatment plan. All questions answered.
[2018-12-06 07:15] LABS: BASO # 0.01 K/mm3 (0.0-2.0); BASO % 0.4 % (0.0-3.0); EOS # 0.1 (0.0-0.7); EOS % 1.9 % (1.5-5.0); HEMOGLOBIN 10.5 g/dL (14.0-18.0); LYMPH # 0.9 (1.2-3.4); LYMPH % 33.3 % (22.0-35.0); MEAN CELL VOLUME 82.8 fl (80.0-105.0); MEAN CORPUSCULAR HEMOGLOBIN 26.9 pg (25.0-35.0); MEAN CORPUSCULAR HGB CONC 32.5 g/dl (31.0-37.0); MEAN PLATELET VOLUME 8.9 fl (7.0-11.0); MONO # 0.2 (0.1-0.6); MONO % 7.4 % (1.0-6.0); RBC 3.9 10^6/uL (3.5-6.1); RED CELL DISTRIBUTION WIDTH 18.9 % (11.5-14.5); WHITE BLOOD COUNT 2.7 10^3/uL (4.5-11.0)
[2018-12-06 07:39] LABS: ALB/GLOB RATIO 1.5 (1.1-1.8); ALBUMIN 3.3 g/dL (3.0-4.8); ALT/SGPT 97 U/L (7-56); AST/SGOT 208 U/L (17-59); BLOOD UREA NITROGEN 8 mg/dL (7-21); CALCIUM 7.4 mg/dL (8.4-10.5); GFR NON-AFRICAN AMERICAN > 60
[2018-12-06] MEDS ORDERED: Multivitamin Therapeutic Tab PO SCH (08:00)
[2018-12-06 08:11] LABS: BENZODIAZEPINES, UR NEGATIVE (NEGATIVE)
[2018-12-06] MEDS ORDERED: Potassium Chloride 20 mEq ER Tab PO STA (08:17)
[2018-12-06] MEDS ORDERED: Magnesium Sulfate 2 gm/50 ml 2 GM/50 ML BAG IVPB ONE (08:17)
[2018-12-06 08:28] LABS: BARBITURATES, UR NEGATIVE (NEGATIVE); OPIATES, UR NEGATIVE (NEGATIVE); PHENCYCLIDINE, UR NEGATIVE (NEGATIVE)
--- NOTE | 2018-12-06 09:38 | CARD ---
APPROVED REPORT Date of service: 12/06/2018 EKG Measurement Heart [id number] <Conclusion> Accelerated Junctional rhythm Abnormal ECG
[2018-12-06] MEDS ORDERED: Multivitamin With Minerals Tab PO SCH (10:00)
[2018-12-06 12:01] LABS: BLOOD UREA NITROGEN 10 mg/dL (7-21); CALCIUM 8.3 mg/dL (8.4-10.5); GFR NON-AFRICAN AMERICAN > 60
[2018-12-06 12:29] VITALS: BP 120/80; RESP 21; TEMP 99
[2018-12-06] MEDS ORDERED: Pantoprazole 40 mg EC Tab PO SCH (12:45)
[2018-12-06 16:34] VITALS: PULSE 116
--- NOTE | 2018-12-06 16:37 | CP.PCM.DIS ---
Provider - Provider Date of Admission: 12/05/18 12:06 Attending physician: Stephanie Bauer DO Consults: 12/05/18 13:35 Social Work Referral Routine Comment: ETOH Physician Instructions: Reason For Exam: Protocol 12/05/18 13:36 Transition In Care/Readmission Reduction Routine Comment: Physician Instructions: Reason For Exam: Protocol Time Spent in preparation of Discharge (in minutes): 35 Hospital Course - Lab Results Lab Results: Most Recent Lab Values WBC 2.7 10^3/uL (4.5-11.0) L D 12/06/18 07:00 RBC 3.90 10^6/uL (3.5-6.1) 12/06/18 07:00 Hgb 10.5 g/dL (14.0-18.0) L 12/06/18 07:00 Hct 32.3 % (42.0-52.0) L 12/06/18 07:00 MCV 82.8 fl (80.0-105.0) 12/06/18 07:00 MCH 26.9 pg (25.0-35.0) 12/06/18 07:00 MCHC 32.5 g/dl (31.0-37.0) 12/06/18 07:00 RDW 18.9 % (11.5-14.5) H 12/06/18 07:00 Plt Count 56 10^3/uL (120.0-450.0) L 12/06/18 07:00 MPV 8.9 fl (7.0-11.0) 12/06/18 07:00 Neut % (Auto) 57.0 % (50.0-68.0) 12/06/18 07:00 Lymph % (Auto) 33.3 % (22.0-35.0) 12/06/18 07:00 Wilcox % (Auto) 7.4 % (1.0-6.0) H 12/06/18 07:00 Eos % (Auto) 1.9 % (1.5-5.0) 12/06/18 07:00 Baso % (Auto) 0.4 % (0.0-3.0) 12/06/18 07:00 Lymph # (Auto) 0.9 (1.2-3.4) L 12/06/18 07:00 Wilcox # (Auto) 0.2 (0.1-0.6) 12/06/18 07:00 Eos # (Auto) 0.1 (0.0-0.7) 12/06/18 07:00 Baso # (Auto) 0.01 K/mm3 (0.0-2.0) 12/06/18 07:00 Absolute Neuts (auto) 1.54 (1.4-6.5) 12/06/18 07:00 PT 11.7 SECONDS (9.4-12.5) 12/05/18 10:46 INR 1.04 12/05/18 10:46 APTT 34.4 Seconds (26.9-38.3) 12/05/18 10:46 Sodium 135 mmol/L (132-148) 12/06/18 11:30 Potassium 3.9 mmol/L (3.6-5.0) 12/06/18 11:30 Chloride 97 mmol/L (98-107) L 12/06/18 11:30 Carbon Dioxide 28 mmol/L (21-33) 12/06/18 11:30 Anion Gap 14 (10-20) 12/06/18 11:30 BUN 10 mg/dL (7-21) 12/06/18 11:30 Creatinine 0.7 mg/dl (0.8-1.5) L 12/06/18 11:30 Est GFR ( Amer) > 60 12/06/18 11:30 Est GFR (Non-Af Amer) > 60 12/06/18 11:30 POC Glucose (mg/dL) 125 mg/dL (65-110) H 12/06/18 11:25 Random Glucose 102 mg/dL (70-110) 12/06/18 11:30 Calcium 8.3 mg/dL (8.4-10.5) L 12/06/18 11:30 Phosphorus 3.5 mg/dL (2.5-4.5) 12/06/18 11:30 Magnesium 1.7 mg/dL (1.7-2.2) 12/06/18 11:30 Total Bilirubin 1.2 mg/dL (0.2-1.3) 12/06/18 07:00 AST 208 U/L (17-59) H D 12/06/18 07:00 ALT 97 U/L (7-56) H 12/06/18 07:00 Alkaline Phosphatase 170 U/L (38-126) H 12/06/18 07:00 Total Protein 5.6 g/dL (5.8-8.3) L 12/06/18 07:00 Albumin 3.3 g/dL (3.0-4.8) 12/06/18 07:00 Globulin 2.3 gm/dL 12/06/18 07:00 Albumin/Globulin Ratio 1.5 (1.1-1.8) 12/06/18 07:00 Urine Opiates Screen Negative (NEGATIVE) 12/06/18 07:34 Urine Methadone Screen Negative (NEGATIVE) 12/06/18 07:34 Ur Barbiturates Screen Negative (NEGATIVE) 12/06/18 07:34 Ur Phencyclidine Scrn Negative (NEGATIVE) 12/06/18 07:34 Ur Amphetamines Screen Negative (NEGATIVE) 12/06/18 07:34 U Benzodiazepines Scrn Negative (NEGATIVE) 12/06/18 07:34 U Oth Cocaine Metabols Negative (NEGATIVE) 12/06/18 07:34 U Cannabinoids Screen Negative (NEGATIVE) 12/06/18 07:34 Alcohol, Quantitative 338 mg/dL (0-10) H* 12/05/18 10:46 - Hospital Course Hospital Course: 47 y/o male with PMH of alcohol abuse/withdrawal, bipolar disorder, PTSD, alcoholic liver cirrhosis presents to the ED from home for alcohol detox/ now in alcohol intoxication. Patients states that he's been drinking heavily (2-3 pint of vodka daily) for the past 4 month and he wants detox. Patient admitted for alcohol intoxication. BAL on admission 338. Started on banana bag, ativan 2q4 estevan and 2q2 prn, CIWA protocol, aspiration/fall/seizure precautions, AST/ALT/ALP 307/124/193, EKG: sinus tachy @ 100. No ST/T wave changes, hypomagnesemia/hypokalemia in the setting of alcohol abuse, lytes repleted. UDS postive only for alcohol. Patient was closely observed for withdrawal symptoms. Today, patient wanted to leave AMA and refused to sign AMA note. Morbidity, m ortality risks explained to the patient including worsening withdrawal symptoms, fall, infection, syncope and any known/unknown consequences including . He is competent to make his decision. Patient still having withdrawal symptoms today. Discharge Exam - Head Exam Additional comments: patient signed AMA. Refused physical exam Discharge Plan - Follow Up Plan Condition: GUARDED Disposition: AGAINST MEDICAL ADVICE Additional Instructions: Patient refused to sign AMA note. Morbidity, mortality risks explained to the patient including worsening withdrawal symptoms, fall, infection, syncope and any known/unknown consequences including . He is competent to make his decision.
== END 2018-12-06 17:00 | disposition left against medical advice (07) | DRG 770 ==
LOC: ED 10:06 → ERH 12:06 → 2RSO 13:26
PROVIDERS: ADMIT Internal Medicine; ATTEND Hospitalist
DX: F10.231 Alcohol dependence with withdrawal delirium (principal); F10.229 Alcohol dependence with intoxication, unspecified; K70.30 Alcoholic cirrhosis of liver without ascites; Y90.8 Blood alcohol level of 240 mg/100 ml or more; D61.818 Other pancytopenia; E83.42 Hypomagnesemia; F31.81 Bipolar II disorder; F43.10 Post-traumatic stress disorder, unspecified; E87.6 Hypokalemia; S20.211A Contusion of right front wall of thorax, initial encounter; Z83.3 Family history of diabetes mellitus; Z82.49 Family history of ischemic heart disease and other diseases of the circulatory system; Z87.891 Personal history of nicotine dependence; Z98.84 Bariatric surgery status